=== PATIENT | female | born 1980 | race Caucasian/White ===

== ENCOUNTER → 2023-06-08 12:15 | Outpatient (CLI) | payer OTHER, MEDICAID, SELFPAY ==
--- NOTE | ~2023-06-08 | MM_ITS ---
EXAMINATION: MM screening nelson BI w fahad HISTORY: Screening mammogram TECHNIQUE: Craniocaudal and mediolateral oblique 3-D tomosynthesis images were obtained and synthetic 2-D images were generated. CAD analysis was submitted and interpreted. COMPARISON: No prior mammogram is available for comparison at this institution. BREAST PARENCHYMAL COMPOSITION: There are scattered areas of fibroglandular density. FINDINGS: There is no evidence of suspicious mass, calcification, or architectural distortion to sugg est malignancy in either breast. There has been no suspicious interval change. IMPRESSION: 1. No mammographic evidence of malignancy. 2. Recommend routine screening mammography in one year. BI-RADS Category 1: Negative Reviewed, dictated and finalized at location A.
== END ==
PROVIDERS: PCP Nurse Practitioner Obstetrics & Gynecology; Visit Provider Nurse Practitioner Obstetrics & Gynecology
DX: Z12.31 Encounter for screening mammogram for malignant neoplasm of breast (principal)
CPT/HCPCS: 77063; 77067

== ENCOUNTER 2023-06-23 10:58 | Outpatient (CLI) | payer OTHER, MEDICAID, SELFPAY ==
--- NOTE | 2023-06-23 11:05 | ECG_ITS ---
Measurements Intervals [place] Rate: 55 P: 28 NH: 148 QRS: 7 QRSD: 92 T: 0 QT: 421 QTc: 403 Interpretive Statements SINUS BRADYCARDIA LOW QRS VOLTAGE IN PRECORDIAL LEADS [QRS DEFLECTION < 1.0 mV IN CHEST LEADS] OTHERWISE WITHIN NORMAL LIMITS NO PREVIOUS ECG AVAILABLE FOR COMPARISON Electronically Signed On 06-24-2023 7:07:14 CDT by Bob Sainz M.D.
== END 2023-06-23 10:59 | disposition home or self-care (01) ==
LOC: ANHCARD 11:00
PROVIDERS: PCP Internal Medicine; Visit Provider Anesthesiology
DX: I10 Essential (primary) hypertension (principal); Z01.818 Encounter for other preprocedural examination
CPT/HCPCS: 93005

== ENCOUNTER 2023-06-27 01:07 | Day surgery (SDC) | payer OTHER, MEDICAID, SELFPAY ==
[2023-06-21 16:50] VITALS: BMI 42.3
--- NOTE | 2023-06-21 17:11 | PC.NURSE ---
Report to the Outpatient Waiting Room, entrance under the green pavilion located off [facility], at time 0600_ on date _06/27/23_. Planned Procedure Time: _0730_. Time changes happen often and if your time is changed the preop area will call you the afternoon before. - You and your visitor will be asked to self-screen and do not enter if you have any COVID symptoms. - A mask is optional within the hospital at this time. Patients may have clear liquids (water, carbonated beverages, clear teas, apple juice) until 3 hours prior to surgery with a maximum of 20 ounces. - No food from midnight until time of surgery - Infants may have breast milk until 4 hours before surgery, formula 6 hours prior to surgery. - Children will be allowed to drink immediately following surgery. If applicable, please bring a bottle or sippy cup to assist with drinking. Juice, water, soda, and popsicles are readily available. For infants on formula, please bring formula the day of surgery. Pacifiers are allowed. Take the following medications with a SIP of water the morning of surgery: __n/a DO NOT STOP ANY OF YOUR OTHER PRESCRIPTION MEDICATIONS PRIOR TO SURGERY ?EXCEPT THE FOLLOWING Medications to discontinue per physician Date to take last dose Please no make-up, nail latvian, hairspray, perfume, deodorant, or body powder the day of surgery. No jewelry (including any body piercings) or valuables the day of surgery, leave them at home. Please take a shower or bath the night before, or the morning of, surgery with an antibacterial soap. Wear comfortable, loose fitting clothing. Children are encouraged to wear pajamas. - Jewelry must be removed prior to entering the operating room. Rings and piercings that are not removed may be cut off. - The hospital will not accept responsibility for valuables. - Please leave all valuables, including medications, at home the day of surgery. If you are going home after surgery, a licensed shuttle bus driver must drive you home. - NO public transportation without another adult if you receive anesthesia. - We recommend that an adult stay with you for 24 hours following discharge. - We also recommend that you do not drive, make important decision, drink alcoholic beverages, or take any drugs that were not prescribed by your health care provider for at least 24 hours after your discharge time. For Pediatric surgeries, we recommend two adults accompany the child home. Follow any additional instructions given to you from your surgeon. If you or anyone in your household have experienced Covid symptoms in the past week, please notify your surgeon or the nurse liaison at the phone number below for possible testing. Telephone instructions given to Abbey Smartand asked if any additional questions and then verbalized understanding. Patient advised to call surgeon office or pre surgery nurse liaison [phone] if any additional questions.
[2023-06-27] VITALS (8 sets, daily range): BP systolic 108–141; BP diastolic 59–89; PULSE 60–87; RESP 11–18; TEMP 37.1–37.6; O2SAT 97–100
[2023-06-27] MEDS: LACTATED RINGERS 1,000 ML 30 ML IV CONT ×2 (06:30→08:36)
[2023-06-27] MEDS: SCOPOLAMINE 1.5 MG PATCH TRANSDERM (06:45)
--- NOTE | 2023-06-27 06:56 | WPDANESEPPF ---
Anes - Initial Pre Proc Eval Procedure: Operation Date: 06/27/23 07:30 Proposed Procedures p Laparoscopic Bilateral Salpingectomy, Hysteroscopy with Gabbi Endometrial Ablation - Daniel Sanchez MD Date/Time: 06/27/23 06:56 Surgeon: Daniel Sanchez MD Pre Op Diagnosis: Menorrhagia Patient Data Age: 43 Gender: F Height: 1.78 m Weight: 134 kg Allergies Allergy/AdvReac Type Severity Reaction Status Date / Time Penicillins Allergy Unknown Rash Verified 06/21/23 16:46 Home Medications Medication Instructions Recorded Confirmed Type metoprolol succinate 100 mg 100 mg PO HS 06/21/23 06/21/23 History tablet,extended release 24 hr rimegepant 75 mg disintegrating 75 mg PO DAILY PRN Migraine 06/21/23 06/21/23 History tablet (Nurtec ODT) Headache topiramate 100 mg tablet 200 mg PO HS 06/21/23 06/21/23 History Patient hx anesthesia problems: post op nausea/vomiting Family hx anesthesia problems: post op nausea/vomiting Results Review: All pre-operative results and documents have been reviewed as part of the pre-operative evaluation. [facility] Family History Family History Mother Family history of thyroid disease Hypertension Family history of diabetes mellitus in first degree relative Sibling Hypertension Father Cerebrovascular accident Grandparent Cerebrovascular accident Family history of malignant neoplasm Family history of heart disease in male family member before age 55 Social History Social History Smoking status: Never smoker Alcohol intake: never Substance use: never Living arrangements: with family Spiritual care concerns: No Anes - Eval Final PreProcedure Day of Procedure 06/27/23 06:56 Patient weight: morbidly obese Heart: regular rate and rhythm Lungs: clear to auscultation Airway: Mallampati scale class II Neurological: alert and oriented Last oral intake: >/= 8 hours ASA classification: III Emergent: no Anesthetic plan: proceed Anesthesia type and monitoring: general ETT and standard monitoring Results Review: All pre-operative results and documents have been reviewed as part of the pre-operative evaluation. Informed Consent: The patient's anesthetic plan and its attendant risks and benefits were discussed with the patient/family/POA. Questions were solicited and answers provided to the satisfaction of the patient/family/POA.
[2023-06-27] MEDS: ACETAMINOPHEN 500 MG TABLET 1000 MG PO (07:00)
[2023-06-27] MEDS: KETOROLAC 15 MG/ML VIAL (*BKC) IV PUSH (07:00)
--- NOTE | 2023-06-27 07:22 | WPDHPUPDATE1 ---
History and Physical Update Update Date/Time: 06/27/23 07:22 History and Physical has been reviewed, including an updated exam of the patient. There are NO changes in the patient's condition. Risks, benefits, and alternatives have been discussed and questions answered. Patient agrees to proceed with procedure.
--- NOTE | 2023-06-27 08:46 | P.OP_ITS ---
Procedure Note - Detailed Date of Procedure 06/27/23 Pre-op Diagnosis Menorrhagia Post-op Diagnosis Same Procedure Performed Laparoscopic bilateral salpingectomy with endometrial ablation and hysteroscopy. Surgeon Daniel Sanchez MD Anesthesia General Indications Menorrhagia, female sterilization Description of Procedure Patient was taken the operating room. She has prepped draped in the dorsal lithotomy position after induction of general anesthesia. A 5 mm abdominal incision was made in left upper quadrant of the abdomen with scalpel. A 5 mm trocars inserted the intra-abdominal cavity under direct visualization of the scope. Pneumoperitoneum was achieved. A 5 mm periumbilical incision was made using a scalpel on the abdominal scan. A 5 mm trocar was inserted the intra- abdominal cavity under visualization of the scope. A 5 mm incision made left l ower quadrant of the abdomen. A 5 mm trocar was inserted the intra-abdominal cavity and direct visualization of the scope. The bilateral fallopian tubes were removed. The paratubal tissue in the area of the uterus was grasped with the LigaSure cautery and transected after being cauterized. The paratubal tissue from the ovary to the uterine cornu was cauterized and transected with LigaSure cautery. This was all done in a bilateral fashion. The tube was transected at the area of the uterine cornua and the tubes was removed through the 5 mm trocar site. The pneumoperitoneum was reduced. The trocars were removed. The skin was closed with subcuticular 4 Monocryl and covered with Dermabond. Our attention was then turned to the endometrial ablation portion of the procedure. A speculum was placed in the vagina. The cervix was grasped with a tenaculum. The cervix was dilated to approximately 8 mm with Ulrich dilators. The hysteroscope was inserted. And the below findings were noted. All of the intrauterine surfaces were curettaged with a medium-size curette and the specimens were collected. Measurements of the cervix were taken using the uterine sound and the hysteroscope. The intrauterine cavity measurements were entered into the handpiece. The device was inserted into the intrauterine cavity and the array was expanded. The balloon cuff was inflated. When an adequate seal was formed the safety and energy cycles were initiated and completed. The array was collapsed, the balloon was deflated. The insert was withdrawn. The hysteroscope was reinserted and a well desiccated intrauterine cavity was observed. The patient was taken recovery room stable condition. Sponge lap and needle counts were correct x2. She tolerated the procedure well. Urine Output -100.0 Pathology Yes Complications No immediate complications Condition Stable Disposition PACU
[2023-06-27] MEDS: ONDANSETRON INJ 4 MG/2 ML VIAL IV PUSH (09:46)
[2023-06-27] MEDS: diphenhydrAMINE HCl INJ 50 MG/ML VIAL 25 MG IV PUSH (10:08)
== END 2023-06-27 11:00 | disposition home or self-care (01) ==
PROVIDERS: PCP Internal Medicine; Visit Provider Obstetrics & Gynecology
PROC: 0UDB8ZZ Extraction of Endometrium, Via Natural or Artificial Opening Endoscopic (ICD-10-PCS; CPT 58558; principal; 2023-06-27 07:30)
DX: N92.0 Excessive and frequent menstruation with regular cycle (principal); E66.01 Morbid (severe) obesity due to excess calories; Z68.41 Body mass index [BMI] 40.0-44.9, adult
CPT/HCPCS: 58661; 58563; 88302; 88305; 93005; A9270; J0330; J1100; J1200; J1885; J2250; J2405; J2704; J3010; J7030; J7120; Q9968

== ENCOUNTER 2024-03-24 14:00 | Emergency (ER) | payer OTHER, MEDICAID, SELFPAY ==
--- NOTE | ~2024-03-24 | XR_ITS ---
XR foot LT min 3V DATE: 03/24/2024 15:53 INDICATION: Heel pain TECHNIQUE: 4 views COMPARISON: None FINDINGS: Moderate plantar calcaneal enthesopathy. Distal Achilles tendon calcification. No fracture, dislocation, periosteal reaction or bone destruction is detected. No erosive change. IMPRESSION: Plantar calcaneal enthesopathy Distal Achilles tendon calcification Reviewed, dictated and finalized at location B.
[2024-03-24 14:36] VITALS: BP 155/106; PULSE 68; RESP 20; TEMP 37.3; O2SAT 100
--- NOTE | 2024-03-24 16:55 | ED.GENADULT ---
HPI - General Adult General Chief complaint: Extremity Injury, Lower Stated complaint: Left Heel Pain Time Seen by Provider: 03/24/24 16:40 Source: patient, RN notes reviewed and old records reviewed Mode of arrival: ambulatory Limitations: no limitations History of Present Illness HPI narrative: 44-year-old female to [facility] for complaint left heel pain for 1 month. Patient states that she works at [employer] and stands on concrete all day for extended periods of time. Patient states that she can no longer tolerate the pain and wanted to be seen. Patient endorses pain is significantly improved in the mornings after resting it returns immediately upon standing and applying pressure. Patient denies swelling, weakness, falls. Patient calm and in no acute distress in room Related Data Home Medications Medication Instructions Recorded Confirmed metoprolol succinate 100 mg 100 mg PO HS 06/21/23 03/24/24 tablet,extended release 24 hr rimegepant 75 mg disintegrating 75 mg PO DAILY PRN Migraine 06/21/23 03/24/24 tablet (Nurtec ODT) Headache topiramate 100 mg tablet 200 mg PO HS 06/21/23 03/24/24 Allergies Allergy/AdvReac Type Severity Reaction Status Date / Time Penicillins Allergy Unknown Rash Verified 06/27/23 07:27 Review of Systems Review of Systems: All systems reviewed & are unremarkable except as noted in HPI and below Constitutional: Constitutional: Reports no additional constitutional complaints Eyes: Eyes: Reports no additional eye complaints ENT: Reports system reviewed and no additional complaints, except as documented Cardiovascular: Cardiovascular: Reports no additional cardiovascular complaints, Denies chest pain and Denies dyspnea Respiratory: Respiratory: Reports no additional respiratory complaints, Denies cough and Denies dyspnea Musculoskeletal: Musculoskeletal: Reports as per HPI, Denies numbness, Denies tingling and Reports other ( left heel pain) Neurologic: Reports system reviewed and no additional complaints, except as documented Psychiatric: Psychiatric: Reports no additional psychiatric complaints [facility] Family History Family History Mother Family history of thyroid disease Hypertension Family history of diabetes mellitus in first degree relative Sibling Hypertension Father Cerebrovascular accident Grandparent Cerebrovascular accident Family history of malignant neoplasm Family history of heart disease in male family member before age 55 Social History Social History Smoking status: Never smoker Alcohol intake: never Substance use: never Living arrangements: with family Spiritual care concerns: No Comments At the time of my signature, I reviewed and agree with the nursing past medical, surgical, social, and family history. There is no relevant family history pertinent to the patient complaint. Exam Const: General: cooperative, healthy appearing, comfortable, no acute distress, alert and well nourished Nutritional Appearance: well nourished Orientation/consciousness: patient oriented x3 Limitations: no limitations HENMT: Head: normal to inspection Ears: external ears normal Face/Nose/Sinus: Normal external nose present, Normal nares present, normal facial exam, No erythema and No edema Face and sinus: normal facial exam, no erythema and no edema Mouth: Yes Normal oral and palatal mucosa present Eyes: General: appearance normal, both eyes and all related structures Neck: Neck: normal visual inspection, full ROM and no meningeal signs Lymphatic: no lymphadenopathy noted and no lymphedema noted Chest: Chest palpation & inspection: normal inspection of the chest Resp: Effort & Inspection: normal respiratory effort and able to speak in complete sentences Auscultation: clear to auscultation bilaterally Cardio: Jugular venous diste
== END 2024-03-24 17:10 | disposition home or self-care (01) ==
PROVIDERS: Emergency Provider Nurse Practitioner Family
DX: M79.672 Pain in left foot (principal); M79.662 Pain in left lower leg
CPT/HCPCS: 73630; 99213; G0463

== ENCOUNTER 2024-04-29 08:02 | Emergency (ER) | payer OTHER, MEDICAID, SELFPAY ==
--- NOTE | ~2024-04-29 | XR_ITS ---
EXAMINATION: XR foot RT min 3V DATE: 04/29/2024 08:27 INDICATION: Pain and bruising at the right fourth toe TECHNIQUE: Dorsoplantar, two oblique and lateral views of the right foot were obtained. COMPARISON: None. FINDINGS: Alignment is normal. No fracture. 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 Small to moderat e-sized Achilles and plantar calcaneal spurs. Soft tissues are unremarkable. IMPRESSION: 1. No acute osseous abnormality. Reviewed, dictated and finalized at location B.
[2024-04-29 08:07] VITALS: BP 166/99; PULSE 53; RESP 20; TEMP 37.2; O2SAT 98
--- NOTE | 2024-04-29 08:08 | ED.LOWEXIN ---
HPI - Extremity Injury (Lower) General Chief Complaint: Extremity Injury, Lower Stated Complaint: right toe/foot injury Time Seen by Provider: 04/29/24 08:15 Source: patient, RN notes reviewed and old records reviewed Mode of arrival: ambulatory Limitations: no limitations History of Present Illness HPI Narrative: 44-year-old female who presents to [facility] with complaints of injury to her right 4th toe when she was getting out of the bathtub last night. She states that she got it caught on the edge of the bathtub but did not fall, Patient has some swelling and bruising of her right 4th toe extending into the distal foot area above toe. Patient has iced her foot but has not taken any OTC medication for her discomfort MD complaint: foot injury (4th toe right foot) Onset (ago): day(s) (last evening) Injury: Right: toes (right 4th toe) Place: home Exacerbating factors: weight bearing Treatments prior to arrival: cold therapy and other Related Data Home Medications Medication Instructions Recorded Confirmed metoprolol succinate 100 mg 100 mg PO HS 06/21/23 04/29/24 tablet,extended release 24 hr rimegepant 75 mg disintegrating 75 mg PO DAILY PRN Migraine 06/21/23 04/29/24 tablet (Nurtec ODT) Headache topiramate 100 mg tablet 200 mg PO HS 06/21/23 04/29/24 Allergies Allergy/AdvReac Type Severity Reaction Status Date / Time Penicillins Allergy Unknown Rash Verified 04/29/24 08:19 Review of Systems Review of Systems: CONSTITUTIONAL: Denies fever, chills, or sweats. EYES: Denies visual changes, redness, or discharge. ENT: Denies rhinorrhea, congestion, sore throat, or otalgia. CARDIOVASCULAR: Denies chest pain, palpitations, or edema. RESPIRATORY: Denies cough or dyspnea. GASTROINTESTINAL: Denies abdominal pain, nausea, vomiting, or diarrhea. GENITOURINARY: Denies dysuria or hematuria. SKIN: Denies rash or itching. MUSCULOSKELETAL: Denies back pain, positive for right foot 4th toe pain from injury, or myalgia. NEUROLOGIC: Denies headache, numbness, or weakness. PSYCHIATRIC: Denies anxiety or depression. All systems reviewed & are unremarkable except as noted in HPI and below PMFSH Past Medical History Medical History (Updated 04/29/24 @ 08:48 by Shira Hollins NP) Hypertension Kidney stone Migraine Surgical History Surgical History (Updated 04/29/24 @ 08:48 by Shira Hollins NP) History of endometrial ablation History of lithotripsy Hx of bilateral salpingectomy Family History Family History Mother Family history of thyroid disease Hypertension Family history of diabetes mellitus in first degree relative Sibling Hypertension Father Cerebrovascular accident Grandparent Cerebrovascular accident Family history of malignant neoplasm Family history of heart disease in male family member before age 55 Social History Social History Smoking status: Never smoker Alcohol intake: never Substance use: never Living arrangements: with family Spiritual care concerns: No Comments At time of signature, agree with nursing past medical, surgical, social and family history. There is no relevant family history pertinent to the presenting complaint Exam Narrative: GENERAL: Well-appearing, well-nourished, and in no acute distress. HEAD: Normocephalic, atraumatic. EYES: PERRLA and EOMI. ENT: Nares clear, no rhinorrhea or epistaxis. Mucous membranes moist. NECK: Supple.no lymphadenopathy CHEST: Clear to auscultation. No respiratory distress. SAO2 98% on room air HEART: Regular rate and rhythm. No murmur heard. Normal peripheral pulses. ABDOMEN: Soft, nontender, nondistended, normal active bowel sounds. EXTREMITIES: Normal range of motion. No edema.Exception noted to right 4th toe with swelling and bruising noted, patient has strong pedal pulse right foot, foot warm and pink. SKI
== END 2024-04-29 08:53 | disposition home or self-care (01) ==
PROVIDERS: Emergency Provider Registered Nurse; PCP Internal Medicine
DX: S90.121A Contusion of right lesser toe(s) without damage to nail, initial encounter (principal); W22.09XA Striking against other stationary object, initial encounter; I10 Essential (primary) hypertension
CPT/HCPCS: 73630; 99213; G0463

== ENCOUNTER 2025-03-31 09:16 | Emergency (ER) | payer OTHER, SELFPAY ==
--- NOTE | ~2025-03-31 | XR_ITS ---
Left foot Technique: AP, oblique, and lateral views were obtained. Clinical History: Heel pain Findings: No acute fracture or dislocation is seen. Osseous alignment is anatomic. Joint spaces are p reserved without erosive or degenerative change. Plantar calcaneal spur present. Soft tissues are unr emarkable. Impression: Plantar calcaneal spur. Reviewed, dictated and finalized at location . Impression: Plantar calcaneal spur.
--- NOTE | 2025-03-31 09:23 | ED.LOWEXIN ---
HPI - Extremity Injury (Lower) General Chief Complaint: Extremity Injury, Lower Stated Complaint: lt foot pain Time Seen by Provider: 03/31/25 09:22 Source: patient Mode of arrival: ambulatory Limitations: no limitations History of Present Illness HPI Narrative: Abbey is a 45 year old female patient presenting to the clinic today with c/o left foot pain increasing worsening for the past several days. She reports her left heel has been more painful and throbbing at night time. No injury. Has seen podiatry and she has bone spurs. Has changed her shoes and performed stretches however at this time it is not relieving her pain. Has taken Ibuprofen for pain. Has an appointment with podiatry on 04/20/25. Is concerned for a stress fracture. Related Data Home Medications ?Medication ?Instructions ?Recorded ?Confirmed ?Last Taken ?Type metoprolol succinate 100 mg 100 mg PO HS 06/21/23 04/29/24 06/26/23 21:00 History tablet,extended release 24 hr rimegepant 75 mg disintegrating 75 mg PO DAILY PRN Migraine 06/21/23 04/29/24 Unknown History tablet (Nurtec ODT) Headache topiramate 100 mg tablet 200 mg PO HS 06/21/23 04/29/24 Unknown History metoprolol succinate 50 mg mg PO 03/31/25 Unknown History tablet,extended release 24 hr potassium citrate 15 mEq (1,620 meq PO 03/31/25 Unknown History mg) tablet,extended release Allergies Allergy/AdvReac Type Severity Reaction Status Date / Time Penicillins Allergy Unknown Rash Verified 04/29/24 08:19 Review of Systems Review of Systems: Pertinent positives per HPI. Patient denies any fever, chills, rash, headache, visual changes, dizziness, cough, runny nose, sore throat, shortness of breath, chest pain, palpitations, nausea, vomiting, diarrhea, constipation, abdominal pain, or any urinary issues. [facility] Past Medical History Medical History Kidney stone Hypertension Migraine Surgical History Surgical History History of lithotripsy History of endometrial ablation Hx of bilateral salpingectomy Family History Family History Mother Family history of thyroid disease Hypertension Family history of diabetes mellitus in first degree relative Sibling Hypertension Father Cerebrovascular accident Grandparent Cerebrovascular accident Family history of malignant neoplasm Family history of heart disease in male family member before age 55 Social History Social History Smoking status: Never smoker Alcohol intake: never Substance use: never Living arrangements: with family Spiritual care concerns: No Comments At the time of my signature, I reviewed and agree with the nursing past medical, surgical, social, and family history. There is no relevant family history pertinent to the patient complaint. Exam Narrative: General: Well-developed, well nourished, in no apparent distress Head: Normocephalic, atraumatic. Cardio: Regular rate and rhythm, s1 and s2 normal, no murmur appreciated. Resp: Clear to auscultation bilaterally, no rhonchi, rales, wheezing or rubs. Musculoskeletal: No deformity, no tenderness over the Achilles tendon or over the arch of the foot, tender to palpation to the mid heel, pain with dorsal flexion to the mid heel, grossly normal range of motion, muscle strength strong and equal, peripheral pulse strong, no edema, no cyanosis, normal gait and station Course Course Emergency Course: Portions of this record may have been created with voice recognition software. Level of Care: Express Care Visit Vital Signs Vital signs: Vital Signs Temperature 36.7 C 03/31/25 09:28 Pulse Rate 73 03/31/25 09:28 Respiratory Rate 20 03/31/25 09:28 Blood Pressure 147/114 H 03/31/25 09:28 Pulse Oximetry 96 03/31/25 09:28 Oxygen Delivery Room Air 03/31/25 09:28 Temperature 36.7 C 03/31/25 09:28 Pulse Rate 73 03/31/25 09:28 Respiratory Rate 20 03/31/25 09:28 Blood Pressure 147/114 H 03/31/25 09:28 Pulse Oximetry 96 03/31/25 09:28 Oxygen Delivery Room Air 03/31/25 09:28 Vital signs reviewed MDM - Extremity Injury (Lower) MDM Narrative Medical decision making narrative: At the time of visit patient is resting comfortably on the exam table. Patient appears to be nontoxic. Diagnostics: X-ray of the left foot was performed and shows a left calcaneal spur. No sign of fracture. Plan: I suspect patient has left heel pain-differential diagnoses include bone spurs, arthritis, or plantar fasciitis. Supportive measures were discussed with the patient and they voiced understanding discharge instructions and agrees to treatment plan. Return precautions reviewed Differential Diagnosis Differential diagnosis: Likely other (Stress fracture, bone spurs, plantar fasciitis, arthritis) Imaging Data Radiologist's impression: ITS Impressions Foot X-Ray 03/31/25 09:55 Impression: Plantar calcaneal spur. Discharge Plan Discharge Clinical Impression: Calcaneal spur of left foot Heel pain Qualifiers: Laterality: left Qualified Code(s): M79.672 - Pain in left foot Patient Disposition: Home Condition: Stable Instructions: Antibiotic Form, Heel Spur (ED) Additional Instructions: X-ray shows a calcaneal heel spur. No sign of fracture Rest, ice, elevate Tylenol/motrin for pain as discussed. Gradually bear weight Take Medrol Dosepak as prescribed Follow up with your PCP if symptoms persist more than 1 week. Patient Language: Greenlandic Prescriptions: New methylprednisolone [Medrol (Lam)] 4 mg tablets,dose pack See Rx Instructions PO .COMPLEX Qty: 21 0RF Rx Instructions: orally per package directions No Action metoprolol succinate 50 mg tablet extended release 24 hr PO potassium citrate 15 mEq tablet extended release PO metoprolol succinate 100 mg tablet extended release 24 hr 100 mg PO HS Patient Comments: at bedtime topiramate 100 mg tablet 200 mg PO HS Patient Comments: at bedtime Nurtec ODT 75 mg tablet,disintegrating 75 mg PO DAILY PRN (Reason: Migraine Headache) Follow-up/Referrals: Milad,Jose Roa MD [Primary Care Provider] - Time of Disposition: 10:01 Quality NIHSS Nursing Documentation ED NIHSS nursing documentation: reviewed/agree
--- OUTSIDE RECORDS SUMMARY | 2025-03-31 09:26 | XMS_ITS | Clinical Summary ---
Author Organization [facility] Address [address] [facility] [place] [address] Phone Care Team Providers Care Outboard Motor Inspector Name Role Phone Jose Stinson MD Primary Care Provider [phone] Allergies Active Allergy Reactions Criticality Noted Date Comments Amlodipine Other (See Comments) 07/29/2024 swelling Penicillins Rash High 04/09/2022 As a child Moderate, immediate reaction: PCN allergy form completed. Moderate risk. Medications topiramate (TOPAMAX) 100 mg tablet Take 100 mg by mouth 2 times daily. Active cyanocobalamin (VITAMIN B-12) 100 mcg tablet Take 100 mcg by mouth daily at bedtime. Active Nurtec ODT 75 mg Tablet, Rapid Dissolve Place 75 mg under tongue. 2 Active diclofenac sodium (VOLTAREN) 75 mg Tablet, Delayed Release (E.C.) PRN- stopped due to issues pertaining to the heart 4 Active metoprolol succinate (TOPROL XL) 50 mg Extended Release 24 hour tablet Take 1 Tablet (50 mg) by mouth daily. 90 Tablet 1 5 Active Active Problems Problem Noted Date Diagnosed Date PVC's (premature ventricular contractions) 07/28 Status post ablation of ventricular arrhythmia 0 07/28/2024 Sinus bradycardia on ECG 05/16/2024 Fatigue 05/16/2024 Palpitations 05/16/2024 Encounters Date Type Department Care Team Description 03/26/2025 External Device Data [facility] ABSTRACTION Provider, Abstract 03/24/2025 External Device Data [facility] Provider, Abstract 02/18/2025 Refill [facility] [address] [place] [address] Jd Glover MD 01/21/2025 External Device Data [facility] ABSTRACTION Provider, Abstract 01/10/2025 External Device Data [facility]STRACTION Provider, Abstract 01/09/2025 External Device Data [facility]STRACTION Provider, Abstract 01/06/2025 External Device Data [facility] ABSTRACTION Provider, Abstract from Last 3 Months Family History Medical History Relation Name Comments Hypertension Father Hypertension Mother Relation Name Status Comments Father Mother Social History Tobacco Use Types Packs/Day Years Used Date Smoking Tobacco: Never Passive Smoke Exposure: Never Smokeless Tobacco: Never Tobacco Cessation:Counseling Given: Not Answered Alcohol Use Standard Drinks/Week Comments Never 0 (1 standard drink = 0.6 oz pur e alcohol) Comments Unknown Sex and Gender Information Value Date Recorded Sex Assigned at Not on file Legal Sex Female 2:29 PM CDT Gender Identity Not on file Sexual Orientation Not on file Last Filed Vital Signs Vital Sign Reading Time Taken Comments Blood Pressure 138/88 07/29/2024 11:08 AM CDT Pulse 73 07/29/2024 11:08 AM CDT Temperature 36.1 C (97 F) 06/18/2024 4:27 PM CDT Respiratory Rate 25 06/18/2024 7:00 PM CDT Oxygen Saturation 98% 07/29/2024 11:08 AM CDT Inhaled Oxygen Concentration - - Weight 112.9 kg (249 lb) 07/29/2024 11:08 AM CDT Height 177.8 cm (5' 10) 07/29/2024 11:08 AM CDT Body Mass Index 35.73 07/29/2024 11:08 AM CDT Plan of Treatment Upcoming Encounters Date Type Department Care Team (Late st Contact Info) Description 07/30/2025 9:30 AM CDT Office Visit [facility] AT [address] [place] [address] Jd Glover MD [address] [place] [address] [address] [place] [id number] Health Maintenance Due Date Last Done Comments Pre-Diabetes and Diabetes Screening 1981 HEPATITIS B VACCINES (1 of 3 - 19+ 3-dose series) 01/30/2000 HPV/Cotest (21-29) 2002 CERVICAL CANCER SCREENING 2011 HPV/Cotest (30-65) 2011 PAP SMEAR 2011 BREAST CANCER SCREENING 2021 INFLUENZA VACCINE (#1) 2024 DTAP/TDAP/TD VACCINES (2 - T d or Tdap) 06/19/2026 06/19/2016 HPV VACCINES Aged Out No longer eligi ble based on patient's age to complete this topic Medical Devices Implanted Type Area Veneer Lathe Operator Device Identifier Shelf Expiration Date Model / Serial / Lot Dev Vns Vasc Clsr Vascade Mvp St [id number] - [id number] Implanted:Qty : 1 on 06/18/2024 by Jd Glover MD at [facility] Closure Device Right: Groin [employer] [id number] 02/24/2026 800-612C- 10U / / [id number] Dev Vns Vasc Clsr Vascade Mvp St [id number] - [id number] Implanted:Qty : 1 on 06/18/2024 by Jd Glover MD at [facility] Closure Device Left: Groin [employer] [id number] 02/24/2026 800-612C- 10U / / [id number] Dev Vns Vasc Clsr Vascade Mvp St [id number] - [id number] Implanted:Qty : 1 on 06/18/2024 by Jd Glover MD at [facility] Closure Device Left: Groin [employer] [id number] 02/24/2026 800-612C- 10U / / [id number] Dev Vasc Closure Vascade 5fr [id number] - [id number] Implanted:Qty : 1 on 06/18/2024 by Jd Glover MD at [facility] Closure Device N/A: [employer] [id number] 03/13/2026 [id number] / / [id number] Insurance [facility] OPTIONS PPO [id number] MEDICAID [place] Advance Directives For more information, please contact: [phone] * Full Code (Latest Code Status on File) Date Activated Date Inactivated Comments 06/18/2024 5:19 PM 06/18/2024 9:54 PM * Full Code Date Activated Date Inactivated Comments 06/18/2024 4:29 PM 06/18/2024 5:19 PM * Full Code Date Activated Date Inactivated Comments 06/18/2024 10:36 AM 06/18/2024 4:29 PM Care Teams Outboard Motor Inspector Relationship Specialty [place] [id number] [facility] [address] [place] [address] PCP - General Internal Medicine 05/20/24
--- OUTSIDE RECORDS SUMMARY | 2025-03-31 09:26 | XMS_ITS | Clinical Summary ---
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 Moderate risk. Medications metoprolol XL (TOPROL-XL) 100 mg 24 hr tablet Take 100 mg by mouth daily Active topiramate (TOPAMAX) 100 mg tablet Take 1 tablet (100 mg total) by mouth 2 (two) times a day 09/07/20 21 Active Additional Information Patient not taking.Reported on 09/20/2021 ondansetron ODT (ZOFRAN-ODT) 4 mg disintegrating tablet Dissolve 1 tablet for mild to moderate nausea or vomiting or 2 tablets for severe nausea or vomiting oral twice a day as needed. 15 tablet 04/02/20 22 Active HYDROcodone-acetam inophen (NORCO) 5-325 mg per tabletIndications: Pain Take 1 tablet by mouth every 6 (six) hours as needed for pain for up to 6 doses 6 tablet 09/24/20 24 Active tamsulosin (FLOMAX) 0.4 mg extended release capsule Take 1 capsule (0.4 mg total) by mouth daily for 7 doses 7 capsule 09/24/20 24 Active ketorolac (TORADOL) 10 mg tablet Take 1 tablet (10 mg total) by mouth every 6 (six) hours as needed for pain for up to 20 doses 20 tablet 09/24/20 24 Active omeprazole (PriLOSEC) 20 mg capsule Take 2 capsules (40 mg total) by mouth daily 30 capsule 11/03/20 24 025 Active dicyclomine (BENTYL) 20 mg tablet Take 1 tablet (20 mg total) by mouth 2 (two) times a day 20 tablet 01/23/20 25 026 Active Active Problems Problem Noted Date Diagnosed Date Left ureteral stone 09/05/2021 Resolved Problems Problem Noted Date Diagnosed Date Resolved Date Kidney stone 09/05/2021 09/05/2021 Encounters Date Type Department Care Team Description 02/23/2025 3:18 PM CDT - 02/23/2025 11:59 PM CDT Hospital Encounter [facility] Imaging Center [address] [place] [address] Chronic metabolic acidosis Discharge Disposition: Discharge to home or self care 02/03/2025 1:36 PM CDT - 02/03/2025 11:59 PM CDT Hospital Encounter [facility] Respiratory [address] [place] [address] Discharge Disposition: Discharge to home or self care 02/03/2025 12:55 PM CDT Lab [address] [address] 02/03/2025 12:50 PM CDT - 02/03/2025 11:59 PM CDT Hospital Encounter [address] [address] Discharge Disposition: Discharge to home or self care 01/22/2025 9:14 PM CDT - 01/23/2025 12:08 AM CDT Emergency [facility] Emergency Department [address] [place] [address] Rogelio Herman MD Abdominal pain (Primary Dx) Discharge Disposition: Discharge to home or self care from Last 3 Months Surgical History Surgery Date Site/Laterality Comments FINGER SURGERY CYSTOSCOPY 09/06/2021 Medical History Medical History Date Comments HTN (hypertension) Migraines Kidney stones Family History Medical History Relation Name Comments Stroke Father Diabetes Mother Relation Name Status Comments Father Alive Mother Alive Social History Tobacco Use Types Packs/Day Years Used Date Smoking Tobacco: Former Cigarettes Q uit: 09/06/2021 Smokeless Tobacco: Current Tobacco Cessation:Ready to Q uit: Not Asked; Counseling Given: Not Answered Alcohol Use Standard Drinks/Week Comments Yes 0 (1 standard drink = 0.6 oz pur e alcohol) special occasions Social Connection and Isolat ion Panel [NHANES] Answer Date Recorded In a typical week, how many times do you talk on the phone with family, friends, or neighbors? More than three times a week 09/07/2021 How often do you get togethe r with friends or relatives? More than three times a week 09/07/2021 How often do you attend chur ch or hinduism services? More than 4 times per year 09/07/2021 Do you belong to any clubs o r organizations such as gnosticist groups, unions, fraternal or athletic groups, or school groups? No 09/07/2021 How often do you attend meet ings of the clubs or organizations you belong to? Never 09/07/2021 Are you , , di vorced, , never , or living with a partner? Never 09/07/2021 Overall Financial Resource Strain (CARDIA) Answe r Date Recorded How hard is it for you to pa y for the very basics like food, housing, medical care, and heating? Somewhat hard 09/07/2021 Hunger Vital Sign Answer Date Recorded Within the past 12 months, y ou worried that your food would run out before you got the money to buy more. Never true 09/07/20 21 Within the past 12 months, t he food you bought just didn't last and you didn't have money to get more. Never true 09/07/2021 PRAPARE - Transportation Answer Date Re corded In the past 12 months, has l ack of transportation kept you from medical appointments or from getting medications? No 01/2021 In the past 12 months, has l ack of transportation kept you from meetings, work, or from getting things needed for daily living? No 09/07/2021 Housing Stability Vital Sign Answer Larry e Recorded In the last 12 months, was t here a time when you were not able to pay the mortgage or rent on time? No 09/07/2021 Number of Places Lived in the Last Year Not on f ile 09/07/2021 In the last 12 months, was t here a time when you did not have a steady place to sleep or slept in a care home (including now)? No 09/07/2021 Personal Safety Answer Date Recorded Have you ever been in or are you currently in a harmful physical or emotional relationship or is someone making you feel afraid or unsafe? 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[employer] Gender Identity Not on file Sexual Orientation Not on file Obstetrics History Last Filed Vital Signs Vital Sign Reading Time Taken Comments Blood Pressure 160/88 01/22/2025 11:30 PM CDT Pulse 80 01/22/2025 11:30 PM CDT Temperature 37.6 C (99.6 F) 01/22/2025 9:01 PM CDT Respiratory Rate 18 01/22/2025 9:01 PM CDT Oxygen Saturation 98% 01/22/2025 11:30 PM CDT Inhaled Oxygen Concentration - - Weight 131.5 kg (290 lb) 01/22/2025 9:01 PM CDT Height 180.3 cm (5' 11) 01/22/2025 9:01 PM CDT Body Mass Index 40.45 01/22/2025 9:01 PM CDT Plan of Treatment Health Maintenance Due Date Last Done Comments Breast Cancer Screening-Mammogram 1981 Cervical Cancer Screening 1981 Depression Screening 1981 Hepatitis C Screening 1981 Varicella Vaccines (1 of 2 - 13+ 2-dose series) 1994 Hepatitis B Screening 1999 Regular Well Visit/Exam 18-64 1999 Influenza Vaccine (Season Ended) 2025 DTaP/Tdap/Td Vaccine (2 - Td or Tdap) 06/19/2026 06/19/2016 HPV Vaccines Aged Out No longer eligi ble based on patient's age to complete this topic Pneumococcal vaccine <65 Aged Out No longer eligible based on patient's age to complete this topic Medical Devices Explanted Type Area Office Copy Selector Device Identifier Shelf Expiration Date Model / Serial / Lot [employer] [facility] [facility] [employer] [id number] 6fr 28cm Radiopaque Graduate [employer] Positioner - [id number] Implanted:Qty: 1 on 09/06/2021 by Grant Ramirez MD at [facility] Explanted:Qty: 1 on 09/21/2021 by Grant Ramirez MD at [facility] Left: Urethra [employer] 08/01/2024 [id number] / / [id number] Procedures Procedure Name Priority Date/Time Associated Diagnosis Comments US KIDNEY COMPLETE Schedule Routine, Read Routine (OP Routine) 02/23/2025 4:25 PM CDT Chronic metabolic acidosis BLOOD GAS, ARTERIAL STAT 02/03/2025 2 :10 PM CDT URINALYSIS, MICROSCOPIC ONLY Routine 02/03/2025 1:17 PM CDT EGFR Routine 02/03/2025 1:17 PM CDT EGFR Routine 02/03/2025 1:17 PM CDT PHOSPHORUS Routine 02/03/2025 1:17 PM CDT BILIRUBIN, DIRECT Routine 02/03/2025 1:1 7 PM CDT COMPREHENSIVE METABOLIC PANEL Routine 02/03/2025 1:17 PM CDT DIFFERENTIAL AUTO Routine 02/03/2025 1:1 7 PM CDT RENIN ACTIVITY Routine 02/03/2025 1:17 PM CDT ALDOSTERONE Routine 02/03/2025 1:17 PM CDT CREATININE Routine 02/03/2025 1:17 PM CDT CHLORIDE, URINE, RANDOM Routine 02/03/2025 1:17 PM CDT POTASSIUM, URINE, RANDOM Routine 02/03/2025 1:17 PM CDT SODIUM, URINE, RANDOM Routine 02/03/2025 1:17 PM CDT URIC ACID Routine 02/03/2025 1:17 PM CDT T4, FREE Routine 02/03/2025 1:17 PM CDT TSH Routine 02/03/2025 1:17 PM CDT VITAMIN D 25 HYDROXY Routine 02/03/2025 1:17 PM CDT PTH Routine 02/03/2025 1:17 PM CDT PROTEIN / CREATININE RATIO, URINE, RANDOM Routine 02/03/2025 1:17 PM CDT CBC WITH AUTO DIFFERENTIAL Routine 02/03/2025 1:17 PM CDT HEMOGLOBIN A1C Routine 02/03/2025 1:17 PM CDT MAGNESIUM Routine 02/03/2025 1:17 PM CDT URINALYSIS AND REFLEX TO MICROSCOPIC AND CULTURE Routine 02/03/2025 1:17 PM CDT VOLUME AND PERIOD, URINE, 24 HOUR Routine 02/03/2025 11:30 AM CDT CALCIUM, URINE, 24 HOUR RESULT Routine 02/03/2025 11:30 AM CDT URINE MISC TO MOBILE Routine 02/03/2025 11 :30 AM CDT VOLUME AND PERIOD, URINE, 24 HOUR Routine 02/03/2025 11:30 AM CDT CITRATE, URINE, 24 HOUR RESULT Routine 02/03/2025 11:30 AM CDT CREATININE CLEARANCE, URINE, 24 HOUR RESULT Routine 02/03/2025 11:30 AM CDT VOLUME AND PERIOD, URINE, 24 HOUR Routine 02/03/2025 11:30 AM CDT SODIUM, URINE, 24 HOUR RESULT Routine 02/03/2025 11:30 AM CDT TROPONIN T HIGH-SENSITIVITY 2-HOUR Timed 01/22/2025 11:[address] ABDOMEN PELVIS W CONTRAST ED 01/22/2025 11:25 PM CDT DIFFERENTIAL AUTO STAT 01/22/2025 10: 22 PM CDT CBC WITH AUTO DIFFERENTIAL STAT 01/22/2025 10:22 PM CDT POCT HCG, URINE Routine 01/22/2025 9:47 PM CDT URINALYSIS AND REFLEX TO MICROSCOPIC AND CULTURE STAT 01/22/2025 9:47 PM CDT EGFR STAT 01/22/2025 9:36 PM CDT TROPONIN T HIGH-SENSITIVITY SERIES (BASELINE, 2HR, 4HR, 6HR) STAT 01/22/2025 9:36 PM CDT LIPASE STAT 01/22/2025 9:36 PM CDT COMPREHENSIVE METABOLIC PANEL STAT 01/22/2025 9:36 PM CDT ECG 12-LEAD STAT 01/22/2025 9:07 PM CDT from Last 3 Months Results * US Kidney Complete (02/23/2025 4:25 PM CDT) Anatomical Region Laterality Modality Kidney N/A Ultrasound 02/26/2025 10:1 0 AM CDT Narrative 02/26/2025 10:12 AM CDT EXAM DESCRIPTION: US KIDNEY COMPLETE REASON FOR STUDY: chronic metabolic acidosis TECHNIQUE: Ultrasound of the kidneys and urinary bladder was performed with grayscale imaging. COMPARISON: CT dated 01/22/2025 FINDINGS: Right Kidney: Normal in size and measures 11.8 cm. Borderline increased echogenicity. No hydronephrosis. 7 and 8 mm shadowing echogenic foci. Left Kidney: Normal in size and measures 11.5 cm. Normal echogenicity. No hydronephrosis. 6 mm shadowing echogenic focus with twinkle artifact. Bladder: Partially distended. Bilateral ureteral jets are documented. IMPRESSION: 1. No hydronephrosis. 2. Likely bilateral nonobstructing renal stones. THIS IS AN ELECTRONICALLY VERIFIED FINAL REPORT 02/26/2025 10:12 AM - Electronically signed by Poli Trevino M.D. AG: HERBIE Report ID: [id number] Reading Location: [id number] Procedure Note Poli Trevino MD - 02/26/2025 EXAM DESCRIPTION: US KIDNEY COMPLETE REASON FOR STUDY: chronic metabolic acidosis TECHNIQUE: Ultrasound of the kidneys and urinary bladder was performedwith grayscale imaging. COMPARISON: CT dated 01/22/2025 FINDINGS: Right Kidney: Normal in size and measures 11.8 cm. Borderline increased echogenicity. No hydronephrosis. 7 and 8 mm shadowing echogenic foci. Left Kidney: Normal in size and measures 11.5 cm. Normal echogenicity.No hydronephrosis. 6 mm shadowing echogenic focus with twinkle artifact. Bladder: Partially distended. Bilateral ureteral jets are documented. IMPRESSION: 1. No hydronephrosis. 2. Likely bilateral nonobstructing renal stones. THIS IS AN ELECTRONICALLY VERIFIED FINAL REPORT 02/26/2025 10:12 AM - Electronically signed by Poli Trevino M.D. AG: HERBIE Report ID: [id number] Reading Location: [id number] us Jose Antonio Grande MD IM US PROCEDURES Final Resul t * (ABNORMAL) Blood gas, arterial (02/03/2025 2:10 PM CDT) pH, Art 7.38 7.35 - 7.45 PCO2, Arterial 29(L) 35 - 45 mmHg [facility] ([place]) PO2, Arterial 86 83 - 108 mmHg [facility] HCO3 Art (Calculated) 17(L) 20 - 30 mmol/L [facility] ([place]) BE, art -7 mmol/L [facility] ([place]) Comment: Interpretive Data No Reference Range Established Current Interpretive Data was last revised on 2017 O2 Sat Art (Measured) 96(H) 90 - 95 % [facility] ([place]) Blood 02/03/2025 2:10 PM CDT 02/03/2025 2:16 PM CDT Jose Antonio Grande MD LAB BLOOD ORDERABLES Final Re sult [facility] ([place]) 1 [facility] Department [place] [address] * eGFR (02/03/2025 1:17 PM CDT) eGFR 84 >=60 mL/min/1. 73 m2 Comment: Interpretive Data Reference Interval Normal >/= 90 mL/min/1.73m2 Mildly decreased* 60 - 89 mL/min/1.73m2 Mildly to moderately decreased 45 - 59 mL/min/1.73m2 Moderately to severely decreased 30 - 44 mL/min/1.73m2 Severely decreased 15 - 29 mL/min/1.73m2 Kidney Failure < 15 mL/min/1.73m2 *Relative to young adult level Estimated glomerular filtration rate is determined by the 2020 CKD-EPI equation recommended by the National Kidney Foundation (A Unifying Approach to GFR Estimation: Recommendations of the NKF-ASK Task Force on Reassessing the Inclusion of Race in Diagnosing Kidney Disease, JASN 202). The CKD-EPI equation should not be used for patients with unstable renal function and has not been validated in children and those over 70. Current interpretive data was last reviewed 2021. Blood 02/03/2025 1:17 PM CDT 02/03/2025 1:47 PM CDT Jose Antonio Grande MD LAB BLOOD ORDERABLES Final Re sult [facility] ([place]) [address] [facility] [place] [address] * eGFR (02/03/2025 1:17 PM CDT) eGFR 87 >=60 mL/min/1. 73 m2 Comment: Interpretive Data Reference Interval Normal >/= 90 mL/min/1.73m2 Mildly decreased* 60 - 89 mL/min/1.73m2 Mildly to moderately decreased 45 - 59 mL/min/1.73m2 Moderately to severely decreased 30 - 44 mL/min/1.73m2 Severely decreased 15 - 29 mL/min/1.73m2 Kidney Failure < 15 mL/min/1.73m2 *Relative to young adult level Estimated glomerular filtration rate is determined by the 2020 CKD-EPI equation recommended by the National Kidney Foundation (A Unifying Approach to GFR Estimation: Recommendations of the NKF-ASK Task Force on Reassessing the Inclusion of Race in Diagnosing Kidney Disease, JASN 2020). The CKD-EPI equation should not be used for patients with unstable renal function and has not been validated in children and those over 70. Current interpretive data was last reviewed 2021. Urine/Blood 02/03/2025 1:17 PM CDT 02/03/2025 1:47 PM CDT Jose Antonio Grande MD LAB BLOOD ORDERABLES Final Re sult [facility] ([place]) 1 [facility] [place] [address] * Differential, auto (02/03/2025 1:17 PM CDT) Neutrophil abs 5.42 1.50 - 6.50 K/cumm Imm gran abs 0.02 0.00 - 0.10 K/cumm [facility] ([place]) Lymphocyte abs 1.92 0.80 - 3.30 K/cumm [facility] ([place]) Monocyte abs 0.63 0.20 - 0.80 K/cumm [facility] ([place]) Eosinophil abs 0.20 0.00 - 0.50 K/cumm [facility] ([place]) Basophil abs 0.06 0.00 - 0.10 K/cumm [facility] ([place]) Neutrophil pct 65.8 % [facility] ([place]) Comment: Interpretive Data Percent cell count reference ranges are not reported, since discordance with absolute values may lead to misinterpretation of CBC data. Current Interpretive Data was last revised on 2018. Imm gran pct 0.2 % [facility] ([place]) Comment: Interpretive Data Percent cell count reference ranges are not reported, since discordance with absolute values may lead to misinterpretation of CBC data. Current Interpretive Data was last revised on 2018. Lymphocyte pct 23.3 % [facility] ([place]) Comment: Interpretive Data Percent cell count reference ranges are not reported, since discordance with absolute values may lead to misinterpretation of CBC data. Current Interpretive Data was last revised on 2018. Monocyte pct 7.6 % [facility] ([place]) Comment: Interpretive Data Percent cell count reference ranges are not reported, since discordance with absolute values may lead to misinterpretation of CBC data. Current Interpretive Data was last revised on 2018. Eosinophil pct 2.4 % [facility] ([place]) Comment: Interpretive Data Percent cell count reference ranges are not reported, since discordance with absolute values may lead to misinterpretation of CBC data. Current Interpretive Data was last revised on 2018. Basophil pct 0.7 % [facility] ([place]) Comment: Interpretive Data Percent cell count reference ranges are not reported, since discordance with absolute values may lead to misinterpretation of CBC data. Current Interpretive Data was last revised on 2018. Blood 02/03/2025 1:17 PM CDT 02/03/2025 1:47 PM CDT us Jose Antonio Grande MD LAB BLOOD ORDERABLES Final Re sult [facility] ([place]) 1 [facility] Department [place] [address] * Renin activity (02/03/2025 1:17 PM CDT) Renin <0.6 ng/mL/H [facility] ref [facility] Comment: REFERENCE VALUE (Peripheral vein specimen) Na-deplete, upright: Mean: 5.9 Range: 2.9-10.8 Na-replete, upright: Mean: 1.0 Range: < or =0.6-3.0 ADDITIONAL INFORMATION Testing performed by Liquid Chromatography-Tandem Mass Spectrometry (LC-MS/MS). This test was developed and its performance characteristics determined by [facility] in a manner consistent with CLIA requirements. This test has not been cleared or approved by the U.S. Food and Drug Administration. Test Performed by: [facility] [place] [place] [address] Surgery Consultant: Stephanie Gr Ph.D.; CLIA# [id number] Blood 02/03/2025 1:17 PM CDT 02/03/2025 1:47 PM CDT us Jose Antonio Grande MD LAB BLOOD ORDERABLES Final Re sult [facility] ([place]) 1 [facility] Department [place] [address] [facility] ref [facility] * (ABNORMAL) Urinalysis reflex to microscopic and culture Urine (02/03/2025 1:17 PM CDT) Color, ur Yellow Yellow Clarity, ur Turbid(A) Clear [facility] ([place]) Specific gravity, ur 1.026 1.003 - 1.030 [facility] ([place]) pH, urine 5.5 [facility] ([place]) Comment: Interpretive Data U rine pH is affected by diet, medications, systemic acid-base disturbances, and renal tubular function. pH may affect urinary stone formation. For example, urine pH below 6.0 may help reduce the tendency for calcium phosphate stones and pH greater than 6.0 may reduce the tendency for uric acid stone formation. Source: [facility] Current Interpretive Data was last revised on 2017 Protein, ur ql Trace Negative [facility] ([place]) Glucose, ur ql Negative Negative [facility] ([place]) Ketones, ur Negative Negative [facility] ([place]) Bilirubin, ur Negative Negative [facility] ([place]) Blood, ur Trace(A) Negative [facility] ([place]) Urobilinogen, ur <2.0 <2.0 mg/dL [facility] ([place]) Nitrite, ur Negative Negative [facility] ([place]) Leukocyte esterase, ur Negative Negative [facility] ([place]) UA reflex comment Reflex to microscopic UA will be performed. [facility] ([place]) Urine 02/03/2025 1:17 PM CDT 02/03/2025 2:22 PM CDT us Jose Antonio Grande MD LAB MICROBIOLOGY - GENERAL OR DERABLES Final Result [facility] ([place]) 1 [facility] Department [place] [address] * CBC with auto differential (02/03/2025 1:17 PM CDT) WBC 8.25 3.80 - 9.90 K/cumm Hgb 14.1 11.9 - 15.5 g/dL [facility] ([place]) Hct 42.4 35.6 - 45.5 % [facility] ([place]) Plt 339 150 - 400 K/cumm [facility] ([place]) MPV 11.5 9.1 - 12.3 fL [facility] ([place]) RBC 4.65 3.90 - 5.20 M/cumm [facility] ([place]) MCV 91.2 81.3 - 96.4 fL [facility] ([place]) MCH 30.3 27.1 - 33.3 pg [facility] ([place]) MCHC 33.3 32.3 - 35.7 g/dL [facility] ([place]) RDW CV 13.8 11.1 - 14.9 % [facility] ([place]) RDW SD 46.5 35.7 - 48.1 fL [facility] ([place]) NRBC abs 0.00 0.00 - 0.01 K/cumm [facility] ([place]) Blood 02/03/2025 1:17 PM CDT 02/03/2025 1:47 PM CDT Jose Antonio Grande MD LAB BLOOD ORDERABLES Final Re sult Performing Organization Address [facility] Co de Phone Number [facility] ([place]) 1 [facility] [place] [address] * Protein / creatinine ratio, urine, random (02/03/2025 1:17 PM CDT) Protein, ur, quant 24.5 mg/dL Comment: Interpretive Data No reference range established. Current interpretive data was last revised 2019. Creatinine Ur 260.9 mg/dL [facility] ([place]) Comment: Interpretive Data No reference range established. Current interpretive data was last revised 2019. Protein/creatinin e ratio 93.9 0.0 - 180.0 mg/g CR [facility] ([place]) Urine 02/03/2025 1:17 PM CDT 02/03/2025 2:22 PM CDT Jose Antonio Grande MD LAB URINE ORDERABLES Final Re sult [facility] ([place]) [address] [facility] [place] [address] * Aldosterone (02/03/2025 1:17 PM CDT) Aldosterone 7.8 <=21 ng/dL [facility] ref [facility] Comment: ADDITIONAL INFORMATION Reference range for patients 11 years and older is based on upright A.M. collection from subjects without sodium restrictions. This test was developed and its performance characteristics determined by [facility] in a manner consistent with CLIA requirements. This test has not been cleared or approved by the U.S. Food and Drug Administration. Test Performed by: [facility] - [facility] [address] [id number] Surgery Consultant: Stephanie Gr Ph.D.; CLIA# [id number] Blood 02/03/2025 1:17 PM CDT 02/03/2025 1:47 PM CDT us Jose Antonio Grande MD LAB BLOOD ORDERABLES Final Re sult Performing Organization Address [facility]/ZIP Co de Phone Number [facility] ([place]) 1 [facility] [place] [address] [facility] ref [facility] * Sodium, urine, random (02/03/2025 1:17 PM CDT) Sodium, ur 88 mmol/L Comment: Interpretive Data No reference range established. Current interpretive data was last revised 2019. Urine 02/03/2025 1:17 PM CDT 02/03/2025 2:22 PM CDT Narrative [facility] ([place]) - 02/03/2025 3:14 PM CDT No normal range us Jose Antonio Grande MD LAB URINE ORDERABLES Final Re sult Performing Organization Address [facility]/ZIP Co de Phone Number [facility] ([place]) 1 [facility] [place] [address] * Potassium, urine, random (02/03/2025 1:17 PM CDT) Potassium conc, ur 103.4 mmol/L Comment: Interpretive Data No reference range established. Current interpretive data was last revised 2019. Urine 02/03/2025 1:17 PM CDT 02/03/2025 2:22 PM CDT us Jose Antonio Grande MD LAB URINE ORDERABLES Final Re sult Performing Organization Address [facility]/ZIP Co de Phone Number [facility] ([place]) 1 [facility] [place] [address] * Chloride, urine, random (02/03/2025 1:17 PM CDT) Chloride, ur 185 mmol/L Comment: Interpretive Data No reference range established. Current interpretive data was last revised 2019. Urine 02/03/2025 1:17 PM CDT 02/03/2025 2:22 PM CDT Narrative [facility] ([place]) - 02/03/2025 3:14 PM CDT No normal range Jose Antonio Grande MD LAB URINE ORDERABLES Final Re sult Performing Organization Address [facility] Co de Phone Number [facility] ([place]) 1 [facility] [place] [address] * (ABNORMAL) Vitamin D 25 hydroxy (02/03/2025 1:17 PM CDT) Pathologist [facility] [place] Vitamin D 25-OH 12(L) 30 - 80 ng/mL Blood 02/03/2025 1:17 PM CDT 02/03/2025 1:47 PM CDT us Jose Antonio Grande MD LAB BLOOD ORDERABLES Final Re sult Performing Organization Address City/[facility]/ZIP Co de Phone Number [facility] ([place]) [address] [facility] [place] [address] * (ABNORMAL) Urinalysis, microscopic only (02/03/2025 1:17 PM CDT) WBC, ur 0-5 0 - 5 /HPF RBC, ur 0-2 0 - 2 /HPF [facility] ([place]) Epithelial cells, squamous, ur 1-5 0 - 5 /HPF [facility] ([place]) Bacteria, ur 2+(A) [facility] ([place]) Mucous, ur Present(A) [facility] A ([place]) Hyaline casts, ur 6-10 0 - 10 /LPF [facility] ([place]) Culture Reflex Comment Reflex conditions for urine culture (WBC >10) not met. [facility] Urine 02/03/2025 1:17 PM CDT 02/03/2025 2:22 PM CDT us Jose Antonio Grande MD LAB URINE ORDERABLES Final Re sult Performing Organization Address [facility]/ZIP Co de Phone Number [facility] ([place]) 1 [facility] [place] [address] * Uric acid (02/03/2025 1:17 PM CDT) Uric acid 4.2 2.5 - 7.0 mg/dL Blood 02/03/2025 1:17 PM CDT 02/03/2025 1:47 PM CDT us Jose Antonio Grande MD LAB BLOOD ORDERABLES Final Re sult Performing Organization Address [facility] Co de Phone Number AMARIS [facility] ([place]) 1 [facility] [place] [address] * (ABNORMAL) TSH (02/03/2025 1:17 PM CDT) Thyroid Stimulating Hormone 4.72(H) 0.30 - 4.20 mcIUnit/mL Blood 02/03/2025 1:17 PM CDT 02/03/2025 1:47 PM CDT us Jose Antonio Grande MD LAB BLOOD ORDERABLES Final Re sult Performing Organization Address [facility] Co de Phone Number AM[facility] ([place]) 1 [facility] [place] [address] * T4, free (02/03/2025 1:17 PM CDT) Free T4 1.09 0.90 - 1.70 ng/dL Blood 02/03/2025 1:17 PM CDT 02/03/2025 1:47 PM CDT us Jose Antonio Grande MD LAB BLOOD ORDERABLES Final Re sult [facility] ([place]) 1 [facility] [place] [address] * Phosphorus (02/03/2025 1:17 PM CDT) Pathologist [facility] [place] Phosphorus, pl 2.9 2.3 - 4.5 mg/dL Blood 02/03/2025 1:17 PM CDT 02/03/2025 1:47 PM CDT us Jose Antonio Grande MD LAB BLOOD ORDERABLES Final Re sult Performing Organization Address City/[facility] Hospital/[facility] Co de Phone Number [facility] ([place]) 1 [facility] [place] [address] * (ABNORMAL) PTH (02/03/2025 1:17 PM CDT) [facility] PTH 67(H) 15 - 65 pg/mL Blood 02/03/2025 1:17 PM CDT 02/03/2025 1:47 PM CDT us Jose Antonio Grande MD LAB BLOOD ORDERABLES Final Re sult Performing Organization Address City/Va Hospital/ZIP Co de Phone Number [facility] ([place]) 1 [facility] [place] [address] * Magnesium (02/03/2025 1:17 PM CDT) Pathologist [facility] [place] Magnesium 1.9 1.4 - 2.5 mg/dL Blood 02/03/2025 1:17 PM CDT 02/03/2025 1:47 PM CDT Jose Antonio Grande MD LAB BLOOD ORDERABLES Final Re sult Performing Organization Address [facility] Co de Phone Number [place] 1 [place] [address] * Hemoglobin A1c (02/03/2025 1:17 PM CDT) Hgb A1C 5.2 4.0 - 5.6 % Estimated Average Glucose 103 mg/dL [facility] ([place]) Comment: The ADA recommends reporting an estimated Average Glucose (eAG) with all Hemoglobin A1c results using the equation derived from a study of 507 normal and diabetic adults. Minority populations were underrepresented and children were not included. (Diabetes Care 31:1628-6064, 2008). The eAG is not equivalent to a fasting glucose. Blood 02/03/2025 1:17 PM CDT 02/03/2025 1:47 PM CDT Jose Antonio Grande MD LAB BLOOD ORDERABLES Final Re sult Performing Organization Address [facility] Co de Phone Number [facility] ([place]) 1 [place] [address] * Creatinine (02/03/2025 1:17 PM CDT) Creatinine 0.85 0.60 - 1.10 mg/dL Urine/Blood 02/03/2025 1:17 PM CDT 02/03/2025 1:47 PM CDT Jose Antonio Grande MD LAB BLOOD ORDERABLES Final Re sult Performing Organization Address City/[facility] Hospital/[facility] Co de Phone Number [facility] ([place]) 1 [place] [address] * Bilirubin, direct (02/03/2025 1:17 PM CDT) Bilirubin, direct <0.1 0.1 - 0.3 mg/dL Blood 02/03/2025 1:17 PM CDT 02/03/2025 1:47 PM CDT Jose Antonio Grande MD LAB BLOOD ORDERABLES Final Re sult [facility] ([place]) 1 [facility] [place] [address] * (ABNORMAL) Comprehensive metabolic panel (02/03/2025 1:17 PM CDT) Sodium 140 135 - 145 mmol/L Potassium, pl 4.2 3.3 - 4.9 mmol/L [facility] ([place]) Chloride 109 97 - 110 mmol/L [facility] ([place]) CO2 18(L) 22 - 32 mmol/L [facility] ([place]) Anion gap 13 2 - 15 mmol/L [facility] ([place]) BUN 12 6 - 25 mg/dL [facility] ([place]) Creatinine 0.87 0.60 - 1.10 mg/dL [facility] ([place]) Glucose 98 70 - 199 mg/dL [facility] ([place]) Comment: Interpretive Data Fasting glucose >/= 126 mg/dl is diagnostic for diabetes. Fasting is defined as no caloric intake for at least 8 hours. Fasting glucose between 100 mg/dl to 125 mg/dl is diagnostic of prediabetes. In a patient with classic symptoms of hyperglycemia or hyperglycemic crisis, a random glucose >/= 200 mg/dl is diagnostic for diabetes. In the absence of unequivocal hyperglycemia, results should be confirmed by repeat testing. The classification and Diagnosis of Diabetes Diabetes Care 2021; 46: S19-S40. Current interpretive data was last revised 2022. Calcium 9.2 8.5 - 10.3 mg/dL [facility] ([place]) Bilirubin, total 0.3 0.1 - 1.2 mg/dL [facility] ([place]) Protein, pl 7.1 6.5 - 8.5 g/dL [facility] ([place]) Albumin 4.1 3.5 - 5.0 g/dL [facility] ([place]) Alk phos 94 40 - 130 Units/L [facility] ([place]) ALT 10 7 - 45 Units/L [facility] ([place]) AST 12 10 - 45 Units/L [facility] ([place]) Blood 02/03/2025 1:17 PM CDT 02/03/2025 1:47 PM CDT Jose Antonio Grande MD LAB BLOOD ORDERABLES Final Re sult Performing Organization Address City/[facility] Hospital/[facility] Co de Phone Number [facility] ([place]) [address] [facility] [place] [address] * (ABNORMAL) Citrate, urine, 24 hour (02/03/2025 11:30 AM CDT) Citric acid, 24 hr ur 139(L) 321 - 1191 mg/24H [facility] Comment: ADDITIONAL INFORMATION This test was developed and its performance characteristics determined by [facility] in a manner consistent with CLIA requirements. This test has not been cleared or approved by the U.S. Food and Drug Administration. Urine 02/03/2025 11:3 0 AM CDT 02/03/2025 1:47 PM CDT Jose Antonio Grande MD LAB URINE ORDERABLES Final Re sult Performing Organization Address City/Va Hospital/ZIP Co de Phone Number [facility] ([place]) 1 [facility] [place] [address] [facility] * URINE MISC TO MOBILE (02/03/2025 11:30 AM CDT) Test name, chem OXU Oxalate, 24 Hr, U [facility] Misc See Comment [facility] [place] ([place]) Comment: Test Result Flag Unit RefValue Oxalate, 24 Hr, U Oxalate, 24 Hr, U 0.26 mmol/24 h 0.11 - 0.46 (mmol/24 hr) ADDITIONAL INFORMATION This test has been modified from the receptionist scheduler's instructions. Its performance characteristics were determined by [facility] in a manner consistent with CLIA requirements. This test has not been cleared or approved by the U.S. Food and Drug Administration. Oxalate, 24 Hr, U 22.9 mg/24 h 9.7 - 40.5 (mg/24 hr) Collection Duration 24 h Urine Volume 1600 mL Test Performed by: [address] [address] Surgery Consultant: Stephanie Gr Ph.D.; CLIA# [id number] Urine 02/03/2025 11:3 0 AM CDT 02/03/2025 1:47 PM CDT us Jose Antonio Grande MD LAB URINE ORDERABLES Final Re sult Performing Organization Address [facility] Co de Phone Number [facility] [place] [place] 1 [facility] [place] [address] [facility] * Volume and period, urine, 24 hour (02/03/2025 11:30 AM CDT) Volume, ur 1,600 mL Period, Urine Collection 1,440 min [facility] ([place]) Urine 02/03/2025 11:3 0 AM CDT 02/03/2025 1:47 PM CDT us Jose Antonio Grande MD LAB URINE ORDERABLES Final Re sult Performing Organization Address City/[facility] Hospital/[facility] Co de Phone Number [facility] ([place]) 1 [facility] [place] [address] * Volume and period, urine, 24 hour (02/03/2025 11:30 AM CDT) Volume, ur 1,600 mL Period, Urine Collection 1,440 min [facility] ([place]) Urine 02/03/2025 11:3 0 AM CDT 02/03/2025 1:47 PM CDT us Jose Antonio Grande MD LAB URINE ORDERABLES Final Re sult [facility] ([place]) [address] [place] [address] [place] [address] * Volume and period, urine, 24 hour (02/03/2025 11:30 AM CDT) Volume, ur 1,600 mL Period, Urine Collection 1,440 min [facility] ([place]) Urine 02/03/2025 11:3 0 AM CDT 02/03/2025 1:47 PM CDT Jose Antonio Grande MD LAB URINE ORDERABLES Final Re sult Performing Organization Address [facility] Co de Phone Number [facility] ([place]) [address] [place] [address] [place] [address] * (ABNORMAL) Sodium, urine, 24 hour (02/03/2025 11:30 AM CDT) Sodium, 24 hr ur 229(H) 40 - 220 mmol/24H Urine 02/03/2025 11:3 0 AM CDT 02/03/2025 1:47 PM CDT us Jose Antonio Grande MD LAB URINE ORDERABLES Final Re sult Performing Organization Address City/Va Hospital/ZIP Co de Phone Number [facility] ([place]) 1 [facility] [place] [address] * (ABNORMAL) Creatinine clearance, urine, 24 hour (02/03/2025 11:30 AM CDT) Creatinine Clearance 135(H) 60 - 130 mL/min Creatinine, 24 hr, ur 1.7(H) 0.6 - 1.5 g/24H [facility] ([place]) Urine/Blood 02/03/2025 11:3 0 AM CDT 02/03/2025 1:47 PM CDT Jose Antonio Grande MD LAB URINE ORDERABLES Final Re sult Performing Organization Address City/Va Hospital/ZIP Co de Phone Number [facility] ([place]) [address] [place] [address] * Calcium, urine, 24 hour (02/03/2025 11:30 AM CDT) Pathologist [facility] [place] Calcium, 24 hr ur 203 25 - 300 mg/24H Comment:Testing performed by : [facility], [address] [place] [address], [facility] Urine 02/03/2025 11:3 0 AM CDT 02/03/2025 7:58 PM CDT Jose Antonio Grande MD LAB URINE ORDERABLES Final Re sult Performing Organization Address [facility] Co de Phone Number [facility] ([place]) [address] [place] [address] * Troponin T high-sensitivity 2-hour (01/22/2025 11:38 PM CDT) Trop T hs <6 <=14 ng/L Comment: Interpretive Data For further hscTnT resources including the diagnostic algorithm and an aid in interpretation, copy and paste this link: https://nrl.testcatalog.org/show/hsTrop Current Interpretive Data last revised 2020. Trop T hs delta 0 ng/L [facility] ([place]) Trop T hs interp Insignificant [facility] ([place]) Blood 01/22/2025 11:3 8 PM CDT 01/22/2025 11:41 PM CDT us Rogelio Herman MD LAB BLOOD ORDERABLES Final Res ult [facility] [place] 1 [facility] [place] [address] * CT Abdomen Pelvis W Contrast (01/22/2025 11:25 PM CDT) Anatomical Region Laterality Modality Body N/A Computed Tomogra phy 01/22/2025 11:4 3 PM CDT Narrative 01/22/2025 11:47 PM CDT EXAM DESCRIPTION: CT ABDOMEN PELVIS W CONTRAST REASON FOR STUDY: Abdominal pain, acute, nonlocalized Mid abdominal pain intermittently x 1.5 weeks with occasional nausea and vomiting. Hx of periumbilical hernia. TECHNIQUE: CT scan of the abdomen and pelvis performed with intravenous and without oral contrast using helical scanning technique with dynamic intravenous contrast injection. Reconstructed coronal and sagittal MPR images reviewed. All images stored on PACS. Automated exposure control was used as a dose optimization technique for this examination. CONTRAST TYPE/DOSE: 100mL of IOVERSOL 350 MG IODINE/ML INTRAVENOUS SYRINGE injected via intravenous COMPARISON: 11/03/2024 FINDINGS: LOWER CHEST: No significant pulmonary abnormalities. No effusion. LIVER: Normal size. No identified cystic or solid masses. GALLBLADDER: No stones identified. No wall thickening or inflammatory changes. BILE DUCTS: No intrahepatic or extrahepatic ductal dilatation. SPLEEN: Normal size. No focal lesions. PANCREAS: No identified cystic or solid masses. No significant calcifications. No adjacent inflammation or peripancreatic fluid collections. Pancreatic duct not dilated. ADRENALS: Stable 2 cm low-density lesion on the left adrenal gland, likely representing an adenoma. The right adrenal gland is normal. KIDNEYS/URINARY TRACT: Small left renal cysts. Punctate nonobstructing bilateral renal stones. No obstructing renal or ureteral calculus. Urinary bladder is unremarkable. GI: No dilated bowel loops. No obvious wall thickening. Normal appendix. No significant diverticular disease. PERITONEUM: No ascites or free air. RETROPERITONEUM: No mass or adenopathy. REPRODUCTIVE: No significant abnormality. VASCULATURE: No abdominal aortic aneurysm. MUSCULOSKELETAL: No significant abnormality. OTHER: 3.3 cm x 4.3 cm periumbilical hernia containing only fat. IMPRESSION: Stable 2 cm low-density lesion on the left adrenal gland, likely representing an adenoma. Small left renal cysts. Punctate nonobstructing bilateral renal stones. No obstructing renal or ureteral calculus. 3.3 cm x 4.3 cm periumbilical hernia containing only fat. THIS IS AN ELECTRONICALLY VERIFIED FINAL REPORT 01/22/2025 11:47 PM - Electronically signed by Dylan Torre M.D. KT: LAUREN Report ID: [id number] Reading Location: [id number] Procedure Note Dylan Trore MD - 01/22/2025 EXAM DESCRIPTION: CT ABDOMEN PELVIS W CONTRAST REASON FOR STUDY: Abdominal pain, acute, nonlocalized Mid abdominal pain intermittently x 1.5 weeks with occasional nausea and vomiting. Hx of periumbilical hernia. TECHNIQUE: CT scan of the abdomen and pelvis performed with intravenousand without oral contrast using helical scanning technique with dynamic intravenous contrast injection. Reconstructed coronal and sagittal MPRimages reviewed. All images stored on PACS. Automated exposure control was usedas a dose optimization technique for this examination. CONTRAST TYPE/DOSE: 100mL of IOVERSOL 350 MG IODINE/ML INTRAVENOUSSYRINGE injected via intravenous COMPARISON: 11/03/2024 FINDINGS: LOWER CHEST: No significant pulmonary abnormalities. No effusion. LIVER: Normal size. No identified cystic or solid masses. GALLBLADDER: No stones identified. No wall thickening or inflammatory changes. BILE DUCTS: No intrahepatic or extrahepatic ductal dilatation. SPLEEN: Normal size. No focal lesions. PANCREAS: No identified cystic or solid masses. No significant calcifications. No adjacent inflammation or peripancreatic fluidcollections. Pancreatic duct not dilated. ADRENALS: Stable 2 cm low-density lesion on the left adrenal gland,likely representing an adenoma. The right adrenal gland is normal. KIDNEYS/URINARY TRACT: Small left renal cysts. Punctate nonobstructing bilateral renal stones. No obstructing renal or ureteral calculus.Urinary bladder is unremarkable. GI: No dilated bowel loops. No obvious wall thickening. Normalappendix. No significant diverticular disease. PERITONEUM: No ascites or free air. RETROPERITONEUM: No mass or adenopathy. REPRODUCTIVE: No significant abnormality. VASCULATURE: No abdominal aortic aneurysm. MUSCULOSKELETAL: No significant abnormality. OTHER: 3.3 cm x 4.3 cm periumbilical hernia containing only fat. IMPRESSION: Stable 2 cm low-density lesion on the left adrenal gland, likelyrepresenting an adenoma. Small left renal cysts. Punctate nonobstructing bilateral renal stones.No obstructing renal or ureteral calculus. 3.3 cm x 4.3 cm periumbilical hernia containing only fat. THIS IS AN ELECTRONICALLY VERIFIED FINAL REPORT 01/22/2025 11:47 PM - Electronically signed by Dylan Torre M.D. KT: LAUREN Report ID: [id number] Reading Location: [place] [address] Rogelio Herman MD IMG CT PROCEDURES Final Result * (ABNORMAL) Differential, auto (01/22/2025 10:22 PM CDT) Neutrophil abs 6.9(H) 1.5 - 6.5 K/cumm Imm gran abs 0.0 0.0 - 0.1 K/cumm [facility] ([place]) Lymphocyte abs 2.6 0.8 - 3.3 K/cumm [facility] ([place]) Monocyte abs 1.1(H) 0.2 - 0.8 K/cumm [facility] ([place]) Eosinophil abs 0.2 0.0 - 0.5 K/cumm [facility] ([place]) Basophil abs 0.1 0.0 - 0.1 K/cumm [facility] ([place]) Neutrophil pct 63.7 % [facility] ([place]) Comment: Interpretive Data Percent cell count reference ranges are not reported, since discordance with absolute values may lead to misinterpretation of CBC data. Current Interpretive Data was last revised on 2018. Imm gran pct 0.3 % [facility] ([place]) Comment: Interpretive Data Percent cell count reference ranges are not reported, since discordance with absolute values may lead to misinterpretation of CBC data. Current Interpretive Data was last revised on 2018. Lymphocyte pct 23.6 % [facility] ([place]) Comment: Interpretive Data Percent cell count reference ranges are not reported, since discordance with absolute values may lead to misinterpretation of CBC data. Current Interpretive Data was last revised on 2018. Monocyte pct 9.6 % [facility] ([place]) Comment: Interpretive Data Percent cell count reference ranges are not reported, since discordance with absolute values may lead to misinterpretation of CBC data. Current Interpretive Data was last revised on 2018. Eosinophil pct 2.2 % [facility] ([place]) Comment: Interpretive Data Percent cell count reference ranges are not reported, since discordance with absolute values may lead to misinterpretation of CBC data. Current Interpretive Data was last revised on 2018. Basophil pct 0.6 % [facility] ([place]) Comment: Interpretive Data Percent cell count reference ranges are not reported, since discordance with absolute values may lead to misinterpretation of CBC data. Current Interpretive Data was last revised on 2018. Blood 01/22/2025 10:2 2 PM CDT 01/22/2025 10:23 PM CDT us Rogelio Herman MD LAB BLOOD ORDERABLES Final Res ult [facility] ([place]) 1 [facility] [place] [address] * (ABNORMAL) CBC with auto differential (01/22/2025 10:22 PM CDT) WBC 10.9(H) 3.8 - 9.9 K/cumm Hgb 13.0 11.9 - 15.5 g/dL [facility] ([place]) Hct 39.6 35.6 - 45.5 % [facility] ([place]) Plt 319 150 - 400 K/cumm [facility] ([place]) MPV 10.4 9.1 - 12.3 fL [facility] ([place]) RBC 4.42 3.90 - 5.20 M/cumm [facility] ([place]) MCV 89.6 81.3 - 96.4 fL [facility] ([place]) MCH 29.4 27.1 - 33.3 pg [facility] ([place]) MCHC 32.8 32.3 - 35.7 g/dL [facility] ([place]) RDW CV 13.9 11.1 - 14.9 % [facility] ([place]) RDW SD 45.0 35.7 - 48.1 fL [facility] NRBC abs 0.00 0.00 - 0.01 K/cumm [facility] ([place]) Blood 01/22/2025 10:2 2 PM CDT 01/22/2025 10:25 PM CDT us Rogelio Herman MD LAB BLOOD ORDERABLES Final Res ult [facility] ([place]) 1 [facility] [place] [address] * (ABNORMAL) Urinalysis reflex to microscopic and culture Urine (01/22/2025 9:47 PM CDT) Color, ur Yellow Yellow Clarity, ur Clear Clear [facility] ([place]) Specific gravity, ur 1.031(H) 1.003 - 1.030 [facility] ([place]) pH, urine 6.0 [facility] Comment: Interpretive Data U rine pH is affected by diet, medications, systemic acid-base disturbances, and renal tubular function. pH may affect urinary stone formation. For example, urine pH below 6.0 may help reduce the tendency for calcium phosphate stones and pH greater than 6.0 may reduce the tendency for uric acid stone formation. Source: [facility] Current Interpretive Data was last revised on 2017 Protein, ur ql Trace Negative [facility] ([place]) Glucose, ur ql Negative Negative [facility] ([place]) Ketones, ur Trace Negative [facility] ([place]) Bilirubin, ur Negative Negative [facility] ([place]) Blood, ur Negative Negative [facility] ([place]) Urobilinogen, ur <2.0 <2.0 mg/dL [facility] ([place]) Nitrite, ur Negative Negative [facility] ([place]) Leukocyte esterase, ur Negative Negative [facility] ([place]) UA reflex comment Reflex conditions for microscopic UA and culture not met. [facility] ([place]) Urine 01/22/2025 9:47 PM CDT 01/22/2025 9:51 PM CDT us Rogelio Herman MD LAB MICROBIOLOGY - GENERAL ORD ERABLES Final Result Performing Organization Address City/[facility] Hospital/[facility] Co de Phone Number [facility] ([place]) [address] [facility] [place] [address] * POCT hCG, urine (01/22/2025 9:47 PM CDT) HCG, ur, POC Negative Negative Lot Number [id number] QC Backgroud Clear Acceptable QC Control Line Acceptable Urine 01/22/2025 9:47 PM CDT us Rogelio Herman MD POINT OF CARE TEST ORDERABLES Final Result * Troponin T high-sensitivity series (baseline, 2hr, 4hr, 6hr) (01/22/2025 9:36 PM CDT) Trop T hs <6 <=14 ng/L Comment: Interpretive Data For further hscTnT resources including the diagnostic algorithm and an aid in interpretation, copy and paste this link: https://nrl.testcatalog.org/show/hsTrop Current Interpretive Data last revised 2020. Blood 01/22/2025 9:36 PM CDT 01/22/2025 9:39 PM CDT us Rogelio Herman MD LAB BLOOD ORDERABLES Final Res ult [facility] ([place]) [address] [facility] [place] [address] * eGFR (01/22/2025 9:36 PM CDT) eGFR 84 >=60 mL/min/1. 73 m2 Comment: Interpretive Data Reference Interval Normal >/= 90 mL/min/1.73m2 Mildly decreased* 60 - 89 mL/min/1.73m2 Mildly to moderately decreased 45 - 59 mL/min/1.73m2 Moderately to severely decreased 30 - 44 mL/min/1.73m2 Severely decreased 15 - 29 mL/min/1.73m2 Kidney Failure < 15 mL/min/1.73m2 *Relative to young adult level Estimated glomerular filtration rate is determined by the 2020 CKD-EPI equation recommended by the National Kidney Foundation (A Unifying Approach to GFR Estimation: Recommendations of the NKF-ASK Task Force on Reassessing the Inclusion of Race in Diagnosing Kidney Disease, JASN 2020). The CKD-EPI equation should not be used for patients with unstable renal function and has not been validated in children and those over 70. Current interpretive data was last reviewed 2021. Blood 01/22/2025 9:36 PM CDT 01/22/2025 9:39 PM CDT Rogelio Herman MD LAB BLOOD ORDERABLES Final Res ult Performing Organization Address City/Va Hospital/ZIP Co de Phone Number [facility] ([place]) 1 [facility] [place] [address] * Lipase (01/22/2025 9:36 PM CDT) Pathologist [facility] [place] Lipase 40 10 - 99 Units/L Blood Venous blood specimen / Unknown 01/22/2025 9:36 PM CDT 01/22/2025 9:39 PM CDT Rogelio Herman MD LAB BLOOD ORDERABLES Final Res ult [facility] ([place]) [address] [facility] [place] [address] * (ABNORMAL) Comprehensive metabolic panel (01/22/2025 9:36 PM CDT) Sodium 137 135 - 145 mmol/L Potassium, pl 4.2 3.3 - 4.9 mmol/L [facility] ([place]) Chloride 108 97 - 110 mmol/L [facility] ([place]) CO2 16(L) 22 - 32 mmol/L [facility] ([place]) Anion gap 13 2 - 15 mmol/L [facility] ([place]) BUN 14 6 - 25 mg/dL [facility] ([place]) Creatinine 0.88 0.60 - 1.10 mg/dL [facility] ([place]) Glucose 120 70 - 199 mg/dL [facility] ([place]) Comment: Interpretive Data Fasting glucose >/= 126 mg/dl is diagnostic for diabetes. Fasting is defined as no caloric intake for at least 8 hours. Fasting glucose between 100 mg/dl to 125 mg/dl is diagnostic of prediabetes. In a patient with classic symptoms of hyperglycemia or hyperglycemic crisis, a random glucose >/= 200 mg/dl is diagnostic for diabetes. In the absence of unequivocal hyperglycemia, results should be confirmed by repeat testing. The classification and Diagnosis of Diabetes Diabetes Care 2021; 46: S19-S40. Current interpretive data was last revised 2022. Calcium 8.6 8.5 - 10.3 mg/dL [facility] Bilirubin, total <0.2 0.1 - 1.2 mg/dL [facility]) Protein, pl 7.1 6.5 - 8.5 g/dL [facility] ([place]) Albumin 4.1 3.5 - 5.0 g/dL [facility] ([place]) Alk phos 91 40 - 130 Units/L [facility] ([place]) ALT 9 7 - 45 Units/L [facility] ([place]) AST 16 10 - 45 Units/L [facility] (ANASTASIYA) Comment: Hemolysis present. Results may be affected. Slightly Hemolyzed Specimen Blood 01/22/2025 9:36 PM CDT 01/22/2025 9:39 PM CDT us Rogelio Herman MD LAB BLOOD ORDERABLES Final Res ult AM[facility]IS [facility]BY (ANASTASIYA) 1 [facility] Department [place] [address] * ECG 12 lead (01/22/2025 9:07 PM CDT) 01/22/2025 9:07 PM CDT Narrative [facility] - 01/23/2025 10:24 AM CDT Vent Rate: 84 bpm RR Interval: 710 msec RI Interval: 154 msec QRS Duration: 83 msec QT Interval: 341 msec QTC Interval: 382 msec P-R-T [place]: 44 - 6 - 21 degrees IMPRESSION: SINUS RHYTHM LOW QRS VOLTAGE IN PRECORDIAL LEADS [QRS DEFLECTION < 1.0 mV IN CHEST LEADS] POSSIBLE ANTERIOR MYOCARDIAL INFARCTION , OF INDETERMINATE AGE [30 ms Q WAVE IN V3/V4, OR R < 0.2 mV IN V4] ABNORMAL ECG NO CHANGE FROM PREVIOUS TRACING NOTED Electronically Signed By: Musa Hester MD Rogelio Herman MD ECG ORDERABLES Final Result Performing Organization Address City/State/[facility] Co de Phone Number [facility] from Last 3 Months Insurance [facility] [place] HMO [facility] HMO/PPO Address: [facility] [id number] [place] [address] [facility] H[facility]/PPO Address: [address] [address] [place] [address] [facility] H[facility]/PPO Address: [address] [address] [facility] H[facility]/PPO Address: [place] [phone] [facility] H[facility]/PPO Address: [address] [address] [place] [address] Advance Directives For more information, please contact: [phone] * Full Code (Latest Code Status on File) Date Activated Date Inactivated Comments 09/05/2021 4:57 PM 09/07/2021 8:11 PM Care Teams Pot Lining Supervisor Relationship Specialty [place] [id number] [facility] [address] [place] [address] PCP - General 02/05/21
--- OUTSIDE RECORDS SUMMARY | 2025-03-31 09:26 | XMS_ITS | Clinical Summary ---
Author Organization [facility] Address [address] [place] [address] Phone Care Team Providers Care Fulfillment Specialist Name Role Phone Unavailable Primary Care Provider Unavailabl e Allergies Active Allergy Reactions Criticality Noted Date Comments Penicillin G Rash High 04/09/2022 Medications topiramate (TOPAMAX) 100 MG Tablet Take 100 mg by mouth in the morning and at bedtime. 2 Active metoprolol Succinate (TOPROL-XL) 100 MG TABLET SR 24 HR Take 100 mg by mouth nightly. 2 Active Rimegepant Sulfate (Nurtec) 75 MG TABLET DISPERSIBLE 75 mg by Sublingual route as needed. 2 Active vitamin b-12 (CYANOCOBALAMIN ) 100 MCG Tablet Take 100 mcg by mouth nightly. Active Multiple Vitamin (MULTI-VITAMIN PO) Take by mouth nightly. Active methylPREDNISol one (Medrol) 4 MG Tablet Therapy PackIndications :Cough, unspecified type,Chest congestion,Kena l URI with cough Use as per instructions on package. 21 Tablet 3 Active promethazine-de xtromethorphan (PROMETHAZINE-D M) 6.25-15 MG/5ML SyrupIndication s:Cough, unspecified type Take 5 mL by mouth every 4 hours as needed for Cough. 240 mL 3 Active Active Problems Problem Noted Date Diagnosed Date Migraine 09/25/2022 Immunizations Immunization Administration Dates Next Due TDAP Vaccine 06/19/2016 Social History Tobacco Use Types Packs/Day Years Used Date Smoking Tobacco: Never Smokeless Tobacco: Never Tobacco Cessation:Counseling Given: Not Answered Alcohol Use Standard Drinks/Week Comments Not Currently 0 (1 standard drink = 0.6 oz pur e alcohol) Sexually Active Control Partners Comments Not Currently Comments No Sex and Gender Information Value Date Recorded Sex Assigned at Not on file Legal Sex Female 2:50 PM [employer]OWER [employer] Gender Identity Not on file Sexual Orientation Not on file Last Filed Vital Signs Vital Sign Reading Time Taken Comments Blood Pressure 112/86 01/04/2023 8:14 AM POWER [employer] Pulse 72 01/04/2023 8:14 AM POWER [employer]IVEN BR[employer] 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 Temperature 36.9 C (98.5 F) 01/04/2023 8:14 AM POWER [employer]IVEN BR[employer] MAKER Respiratory Rate 16 01/04/2023 8:14 AM POWER [employer]IVEN BR[employer]KER Oxygen Saturation 98% 01/04/2023 8:14 AM POWER [employer]IV[employer] BR[employer]ER Inhaled Oxygen Concentration - - Weight 127 kg (280 lb) 01/04/2023 8:14 AM POWER [employer]IVEN BRUSH [employer]KER Height - - Body Mass Index - - Plan of Treatment Health Maintenance Due Date Last Done Comments Hepatitis C Virus (HCV) Screening 1981 Hepatitis B Immunization (1 of 3 - 19+ 3-dose series) 01/30/2000 Influenza Immunization (#1) 2024 SARS-COV-2 Immunization ( - 2023- season) 2024 Respiratory Syncytial Virus (RSV) Immunization (Adult) (1 - 1-dose 75+ series) 01/30/2056 DTaP/Tdap/Td Immunization Discontinued 06/19/2016 Meningococcal Immunization (ACWY) Aged Out No longer eligible based on patient's age to complete this topic Pneumococcal Immunization Combined Aged Out No longer eligible b ased on patient's age to complete this topic Rotavirus Immunization Aged Out No lo nger eligible based on patient's age to complete this topic Insurance MEDICAID [place] [facility]
--- OUTSIDE RECORDS SUMMARY | 2025-03-31 09:26 | XMS_ITS | Clinical Summary ---
Author Organization [facility] Address [address] [place] [address] Care Team Providers Care Nursery Manager Name Role Phone Jose Stinson MD Primary Care Provider [phone] Allergies Active Allergy Reactions Criticality Noted Date Comments Penicillins Rash Low 03/10/2025 Medications Nurtec 75 MG tablet dispersible Take 75 mg by mouth 1 (one) time each day if needed 2 Active topiramate (TOPAMAX) 100 MG tablet Take 100 mg by mouth in the morning and 100 mg in the evening. 4 Active metoprolol succinate XL (TOPROL XL) 50 MG 24 hr tablet metoprolol succinate 50 mg tablet extended release 24 hr 2 Active Potassium Citrate ER (Urocit-K 15) 15 MEQ (1620 MG) tablet controlled-relea se Take 30 mEq by mouth in the morning and 30 mEq in the evening. 120 tablet 11 5 03/10/20 26 Active Active Problems No known active problems Encounters Date Type Department Care Team Description 03/19/2025 Documentation Only [facility] [address] [place] [address] Jose Antonio Grande MD 03/10/2025 12:00 PM CDT Office Visit [facility] [address] [place] [address] Jose Antonio Grande MD Chronic kidney disease, stage 2 (mild) (Primary Dx); Nephrolithiasis; Chronic respiratory alkalosis; Distal renal tubular acidosis 02/08/2025 Documentation Only [facility] [address] [place] [address] [address] Jose Antonio Grande MD 2025 11:00 AM CDT Office Visit [facility] [address] [place] [address] Jose Antonio Grande MD Chronic metabolic acidosis (Primary Dx) from Last 3 Months Family History Medical History Relation Comments Allergies Brother Asthma Brother Hypertension Brother Diabetes Father Hypertension Father Irritable bowel syndrome Father Stroke Father Thyroid disease Mother Relation Status Comments Brother Father Mother Social History Tobacco Use Types Packs/Day Years Used Date Smoking Tobacco: Former Cigarettes Smokeless Tobacco: Never Tobacco Cessation:Counseling Given: Not Answered Alcohol Use Standard Drinks/Week Comments Not Currently 0 (1 standard drink = 0.6 oz pur e alcohol) Comments Unknown Sex and Gender Information Value Date Recorded Sex Assigned at Not on file Legal Sex Female 1:48 PM EST Gender Identity Not on file Sexual Orientation Not on file Last Filed Vital Signs Vital Sign Reading Time Taken Comments Blood Pressure 138/82 03/10/2025 12:03 PM CDT Pulse 83 03/10/2025 12:03 PM CDT Temperature 36.3 C (97.4 F) 03/10/2025 12:03 PM CDT Respiratory Rate - - Oxygen Saturation 98% 03/10/2025 12:03 PM CDT Inhaled Oxygen Concentration - - Weight 133 kg (292 lb 8 oz) 03/10/2025 12:03 PM CDT Height 177.8 cm (5' 10) 03/10/2025 12:03 PM CDT Body Mass Index 41.97 03/10/2025 12:03 PM CDT Plan of Treatment Upcoming Encounters Date Type Department Care Team (Late st Contact Info) Description 06/16/2025 10:00 AM CDT Office Visit [facility] [address] [place] [phone] Jose Antonio Grande MD [address] [place] [address] [place] [id number] Health Maintenance Due Date Last Done Comments Hepatitis B Vaccine (1 of 3 - 19+ 3-dose series) 01/29 Pneumococcal Vaccine: Peds ( 0 to 5 Years) and At-Risk Patients (6 to 49 Years) (1 of 2 - PCV) 01/30/2000 Influenza Vaccine (Season Ended) 2025 Insurance Care Teams Nursery Manager Relationship Specialty [place] [id number] [address] PCP - General Internal Medicine 10/30/24
--- OUTSIDE RECORDS SUMMARY | 2025-03-31 09:26 | XMS_ITS | Data Portability ---
Author Organization [facility] Address [address] [place] [address] Care Team Providers Care Bilingual Sales Consultant Name Role Phone DANIELA REDMOND Primary Care Provider Assessment No assessment recorded. Plan of Treatment Reminders Order Date Submit Date Provider Last Modified By Organization Details Last Modified Time Details Appointments None recorded. Lab None recorded. Referral None recorded. Procedures None recorded. Surgeries None recorded. Imaging US, transvagina l 2022 023 [address], [address], [place], [address], 13:29:56 Medication Orders estradiol 2 mg tablet 2022 023 [facility] [address] [facility], [place], [address], 14:53:16 Patient TargetsNo targets recorded. Patient InstructionsNo instructions recorded. Reason for Referral None Reported. Results Created Date Observation Date Name Description Value Unit Range Abnormal Flag Note LastModifiedBy Organization Detail LastModifiedTime 07/17/2007/17/2023 US, luis fernando matthews al No observ ation record ed. [facility] [address], [place], [address], 07/17/2023 13:28:52 07/17/20 23 07/17/2023 US, trans vagin al No observ ation record ed. [email or web address] [address], [place], [address], 07/17/2023 22:02:43 Result Notes None recorded. Procedures Surgical History Date Name Laterality Status Provider Name and Address Organization Details Recorded Time 06/27/20 23 SALPINGECTOMY, LAPAROSCOPIC (SURG) completed Amairani Padilla [facility] 06/28/2023 11:16:34 04/19/20 23 Endometrial Biopsy completed Aubrie Duong [facility]- [address], [place], [address], [facility] 04/19/2023 17:58:40 03/29/20 23 Date of Last [facility]/29[facility]2023 14:27:25 09/05/20 21 Kidney endoscopy completed [facility] 04/10/2023 12:22:55 09/05/20 21 Kidney end[facility] & [facility] 04/10/2023 12:24:49 09/05/20 21 Kidney endoscopy & treatment [facility] 04/10/2023 12:26:40 11/05/19 09 Colposcopy completed [facility] 03/29/2023 14:28:35 11/05/19 09 LEEP completed [facility] 04/10/2023 12:25:13 11/05/19 09 Colposcopy completed [facility] 04/10/2023 12:25:22 11/05/18 97 extraction of wisdom tooth [facility] 04/10/2023 12:26:08 11/05/18 90 procedure on finger completed [facility] 04/10/2023 12:25:59 Imaging Results None recorded. Procedure Notes None recorded. Medical Equipment None Reported. Allergies Allergen ID Allergen Name Allergen Category Reaction Reaction Severity Criticality Documentation Date Start Date Code Code System Note Provider Name and Address Organization Details Recorded Time Product containin g penicilli n (product) medicatio n Not available Not available Not available 03/29/2023 46783 [id number] SNOMED Sarita Hayes [facility] 3 14:26:36 Medications Name Sig Start Date Stop Date Status Note LastModified by Organization Details LastModified Time atorvastati n 40 mg tablet TAKE 1 TABLET BY MOUTH AT BEDTIME 04/19 completed Not Available Not Available Not Available promethazin e-DM 6.25 mg-15 mg/5 mL oral syrup TAKE 5 ML BY MOUTH EVERY 4 HOURS NEEDED FOR COUGH 04/19 completed Not Available Not Available Not Available azithromyci n 250 mg tablet TAKE 2 TABLETS BY MOUTH ON DAY 1, AND THEN TAKE 1 TABLET BY MOUTH ONCE A DAY ON DAY 2 THROUGH DAY 5 04/19 completed Not Available Not Available Not Available hydrocodone 5 mg-acetamin ophen 325 mg tablet TAKE 1 TABLET BY MOUTH EVERY 6 HOURS NEEDED FOR PAIN 06/21 completed Not Available Not Available Not Available metoprolol succinate ER 100 mg tablet,exte nded release 24 hr TAKE 1 TABLET BY MOUTH ONCE DAILY. APPOINTME NT REQUIRED FOR FUTURE REFILLS active Not Available Not Available No t Available oxycodone-a cetaminophe n 5 mg-325 mg tablet active Not Available Not Available No t Available tamsulosin 0.4 mg capsule TAKE 1 CAPSULE BY MOUTH ONCE DAILY active Not Available Not Available No t Available estradiol 2 mg tablet Take 1 tablet by mouth once daily 2022 active Not Available Not Available Not Avai lable methylpredn isolone 4 mg tablets in a dose pack TAKE BY MOUTH DIRECTED ON INSIDE OF PACKAGE 04/19 completed Not Available Not Available Not Available topiramate 100 mg tablet TAKE 1 TABLET BY MOUTH TWICE DAILY active Not Available Not Available No t Available topiramate 04/19 completed Not Available Not Available Not Available Ubrelvy 50 mg tablet TAKE 1 TABLET BY MOUTH DIRECTED - MAY REPEAT DOSE ONCE AFTER 2 HOURS IF NEEDED active Not Available Not Available No t Available [facility] ODT 75 mg disintegrat ing tablet PLACE 1 TABLET ON TOP OF TONGUE, ALLOW TO DISSOLVE THEN SWALLOW ONCE NEEDED FOR MIGRAINE; MAX 1 DOSE PER 24 HOURS active Not Available Not Available No [facility]19 completed Not Available Not Available Not Available Vitals Date Recorded Body height Body mass index (BMI) Body weight Systolic And Diastolic Provider Name and Address Organization Details Last Updated DateTime 07/11/2023 175.26 cm 41.9 kg/m2 404311.23 g 117/83 mm[Hg] [facility] 07/11/2023 14:34:08 Date Recorded Body height Body mass index (BMI) Body weight Systolic And Diastolic Provider Name and Address Organization Details Last Updated DateTime 07/21/2023 175.26 cm 41.9 kg/m2 727370.23 g 115/81 mm[Hg] [facility] 07/21/2023 11:45:11 Date Recorded Body height Body mass index (BMI) Body weight Systolic And Diastolic Provider Name and Address Organization Details Last Updated DateTime 08/02/2023 175.26 cm 41.9 kg/m2 073019.23 g 116/79 mm[Hg] [facility] 08/02/2023 16:20:37 Social History Question Answer Notes LastModified by Organizat ion Details LastModified Time Tobacco Smoking Status Former Smoker Sarita hernandez, [facility] 04/10/2023 12:20:09 Are You Blind Or Do You Have Difficulty Seeing? No [email or web address] Information n ot available 04/10/2023 What Is Your Level Of Caffeine Consumption? Moderate [email or web address] Information not available 04/10/2023 In The 14 Days Before Symptom Onset, Have You Had Close Contact With A Laboratory-confirm ed COVID-19 While That Case Was Ill? No [email or web address] Information n ot available 04/10/2023 In The 14 Days Before Symptom Onset, Have You Had Close Contact With A Person Who Is Under Investigation For COVID-19 While That Person Was Ill? No [email or web address] Information not available 04/10/2023 Have You Been To An Area Known To Be High Risk For COVID-19? No Information not available 04/10/2023 Are You Deaf Or Do You Have Serious Difficulty Hearing? No [email or web address] Information not available 04/10/2023 What Type Of Diet Are You Following? REGULAR [email or web address] Information n ot available 04/10/2023 Have You Ever Been Counseled For Unhealthy Alcohol Use? No Information not available 04/10/2023 Do You Use Your Seat Belt Or Car Seat Routinely? Yes [email or web address] Information not available 04/10/2023 Do You Have Smoke And Carbon Monoxide Detectors In Your Home? Yes [email or web address] Information not available 04/10/2023 Do You Use Sunscreen Routinely? Yes [email or web address] Information not available 04/10/2023 Has Tobacco Cessation Counseling Been Provided? No [email or web address] Information not available 04/10/2023 Do You Have Difficulty Walking Or Climbing Stairs? No [email or web address] Information not available 04/10/2023 Sex: Unknown Functional Status Question Answer Note LastModified by Organizat ion Details LastModified Time Do you use any illicit or recreational drugs? No [email or web address] Information not available 04/10/2023 Do you or have you ever used any other forms of tobacco or nicotine? Yes [email or web address] Information not available 04/10/2023 What is your level of alcohol consumption? Occasional Information not available 04/10/2023 Are you able to walk? YESWOREST [email or web address] Information not available 04/10/2023 Are you able to care for yourself? Yes [email or web address] Information not available 04/10/2023 Do you have difficulty dressing or bathing? No [email or web address] Information not available 04/10/2023 Do you or have you ever used e-cigarettes or vape? Former user of electronic cigarettes [email or web address] Information not available 04/10/2023 What is your exercise level? Occasional [email or web address] Information not available 04/10/2023 Mental Status Question Answer Note LastModified by Organization D etails LastModified Time Do you feel stressed (tense, restless, nervous, or anxious, or unable to sleep at night)? [id number] [email or web address] Information not available 04/10/2023 Family History Relationship Description Onset Age of this Age Resolved Age Notes LastModified by Organization Details LastModified Time Paternal Grandmother Malignant tumor of breast [email or web address] Not available 04/10 12:13:53 Paternal Grandfather Heart disease [email or web address] Not available 04/10 12:14:21 Paternal Grandfather Hypertensive disorder [email or web address] Not available 04/10 12:18:38 Mother Diabetes mellitus [email or web address] Not available 04/10 12:14:39 Mother Cyst of ovary [email or web address] Not available 04/10 12:19:05 Mother Disorder of thyroid gland [email or web address] Not available 04/10 12:19:23 Maternal Grandfather Diabetes mellitus [email or web address] Not available 04/10 12:14:39 Father Hypercholest erolemia [email or web address] Not available 04/10 12:18:14 Father Hypertensive disorder [email or web address] Not available 04/10 12:18:38 Brother Hypertensive disorder [email or web address] Not available 04/10 12:18:38 Brother Hypercholest erolemia [email or web address] Not available 04/10 12:18:44 Maternal Aunt Disorder of thyroid gland [email or web address] Not available 04/10 12:19:24 Medical History Condition Response Allergies (Food, seasonal, environmental ) N Other N Breast Cancer N Drug/Latex Allergies/Reactions Y Blood Transfusion N Dermatologic Disorders N Lung Disease N Defects or Inherited Disease N Breast Problem N Gestational Diabetes N Hematologic disorders N Anesthesia Complications N History of STI Y Deep Vein Thrombosis N Polycystic ovary syndrome N Anxiety Disorder N Autoimmune disease N Arthritis N Infertility N Polyps N Acid Reflux (GERD) N History of abnormal pap Y Cancer N Stroke N Varicosities N Neurologic/Epilepsy N Endometriosis N High Cholesterol Y Headaches Y Fibromyalgia N Kidney Disease N Heart Problems N Kidney or Bladder Problems Y Thyroid Problems N GI Problems N Eating Disorder N Anemia N Art (IVF or FET) N Psychiatric Illness N Ovarian Cancer N Diabetes N Pulmonary (TB, Asthma) N Hepatitis/Liver Disease N No Past Medical History N Eczema N Urinary Tract Infection N Abuse/Domestic Violence N Asthma N Trauma/Violence N Depression/ depression N Heart Disease N Pre-Eclampsia N Hypertension Y Osteoporosis N Thrombophilias N Gynecological History Statement/Question Response Abnormal Pap Y Date of Last Mammogram Date of LMP 04/13/2023 Was last menstrual period normal Y STIs/STDs Yes HPV Vaccine N Colposcopy 11/05/2008 Current Control Method Sterilizati on Are cycles usually normal Y Date of Last Colonoscopy Most Recent Bone Density Sexually Active? N Menses Monthly Y Date of Last Pap Smear 03/29/2023 Sexual Problems? N LMP Approximate Obstetrics History GPAL:G 1 P 0 1 0 1 Type Value Premature 1 Living 1 Total 1 Past Encounters Encounter ID Performer Location Encounter Start Date Encounter Closed Date Diagnosis/Indication Diagnosis SNOMED-CT Code Diagnosis ICD10 Code Diagnosis Note [id number] Aubrie Duong , [facility] [address] [address] 03/29/2023 14:04:57 03/29/2023 14:56:15 Gynecologic examination 01903763 Z01.419 Suggested Calcium with Vitamin D 1200-1500m g daily. Patient advised to get an annual flu shot in the fall and she could obtain at [facility] or [facility]. Also to obtain TDap vaccinatio n if you have not had one in the last 10 years. Recommend yearly mammograms . Encouraged monthly self breast exams. Encourage safe sexual practices, to use condoms and limit partners if not already in a monogamous relationsh ip. Engage in daily exercise of low impact aerobic exercise 45-60 minutes 4-5 times weekly. Avoid tobacco and illicit drugs as well as using moderation with alcohol intake less than 1-2 8 oz beverages daily. This lifestyle behavior pattern will lead to less health conditions and longer life span. If BMI greater than 25 weight watchers or dietary consult advised. All questions have been answered. Patient appears to understand informatio n, but if you have any questions please call or respond to this email.Pap/ hpv sentSTD Screen declinedGe netic Screen discussedC olon Screen naDexa Screen naRoutine Labs PCPMammo ordered Perimenopausal state 103 [id number] 53010 Z78.0 Update labs Irregular periods 055268 07 N92.6 Hx of irregular cycles/Hir sutism/dif ficulty losing weightQues tionable PCOS Screening mammography 24 776625 Z12.31 External hemorrhoids 239 73252 K64.4 Refer to GI to discuss ext hemorrhoid s [id number] Vlad Sanchez MD [facility] [address] [address] 04/05/2023 13:54:59 04/05/2023 14:37:07 Irregular periods 20725851 N92.6 [id number] Aubrie Duong [facility] [address] [address] 04/19/2023 17:24:58 04/19/2023 18:00:38 Screening procedure 93579320 Z13.9 Abnormal u terine bleeding 0169516551 9100 N93.9 Here today for EMBx & lab work for menorrhagi a/AUB.Revi ewed US.We agreed on MD consult with Dr. Sanchez to further discuss recommenda tions that might also include surgical.( see procedure notes). [id number] Vlad Sanchez MD [facility] [address] [address] 05/17/2023 15:13:04 05/17/2023 16:36:54 Menorrhagia 728394751 N92.0 This patient is a 43-year-ol d female presents for heavy vaginal bleeding. She has longstandi ng very heavy bleeding. Her menses are regular. However, they require double protection . Patient has accidents, getting blood on her bedding and clothing. Is affected work. She changes a pad or tampon every hour. She leaks blood around the pad and tampon. This bleeding has a profound impact on her quality of life and her activities of daily living. discussed treatment options in detail. Talked about medical and surgical treatment options as well as procedures that would treat bleeding. Talked about endometria l ablation in detail. We reviewed the animated video of endometria l ablation. Talked about success rates. Talked about the presence of uterine fibroids and there was against. I feel they have significan ce in her situation because they are on the periphery of the uterus. Spent over 40 minutes face-to-fa ce. Made a decision to perform surgery. More than 50% of our time was counseling . she is going to contact us and she will likely want to schedule laparoscop ic bilateral salpingect janna and endometria l ablation with hysterosco py at the hospital. [id number] Vlad Sanchez MD [facility] [address] [address] 06/21/2023 14:13:13 06/21/2023 15:01:38 Menorrhagia 138974785 N92.0 This patient is a 43-year-ol d female with severe menorrhagi a and unwanted fertility. We agreed to perform laparoscop ic bilateral salpingect janna and endometria l ablation with hysterosco py. She understand s risks, benefits, and alternativ es. She has completed informed consent process and is ready to proceed. [id number] Vlad Sanchez MD [facility] [address],[place] [address] 06/28/2023 10:54:13 06/28/2023 10:58:20 [id number] Vlad Sanchez MD [facility] [address] [address] 07/11/2023 14:17:43 07/11/2023 15:08:47 Abnormal uterine bleeding 1822622043 9100 N93.9 43-year-ol d female who presents for follow-up on abnormal uterine bleeding. She had endometria l ablation a couple of weeks ago. She continues to bleed. About solutions, talked about reasons, we talked about evaluation . We agreed to further evaluation with ultrasound . She will be treated with estradiol -2 mg daily for 3 weeks. She will return in about 1 week. [id number] Vlad Sanchez MD [facility] [address] [address] 07/17/2023 12:33:57 07/17/2023 13:29:56 Abnormal uterine bleeding 3439356753 9100 N93.9 43-year-ol d female who presents for follow-up on abnormal uterine bleeding. She had endometria l ablation a couple of weeks ago. She continues to bleed. About solutions, talked about reasons, we talked about evaluation . We agreed to further evaluation with ultrasound . She will be treated with estradiol -2 mg daily for 3 weeks. She will return in about 1 week. [id number] Vlad Sanchez MD [facility] [address] [address] 07/21/2023 11:31:28 07/21/2023 12:21:30 Abnormal uterine bleeding 8190645394 9100 N93.9 This patient is a 43 year female presents follow-up ultrasound . She has had an endometria l ablation about 3 weeks ago. She has copious discharge. The discharge persists. There was some blood, old blood, serous material. It is concerning to the patient. The ultrasound is normal. We have been treating with estrogen. She will follow-up in 2 weeks. Will continue to observe. She was given precaution s. Spent 20 minutes face-to-fa ce. More than 50% was counseling . [id number] Vlad Sanchez MD [facility] [address] [address] 08/02/2023 16:02:45 08/02/2023 16:54:09 Menorrhagia 663097257 N92.0 43-year-ol d female presents for follow-up endometria l ablation. She has had continue discharge after the ablation. Is 5 weeks post ablation. discharge is improved finally. She has had some bright red bleeding, this was like, likely healing. We will continue to observe. She will follow-up as needed. She seems to be improving overall. Health Concerns Section Related Observation LastModified by Organization Detai ls LastModified Time None Recorded Concern Status LastModified by Organization Details LastModified Time None Recorded Advance Directives Directive None Recorded Payers Encounter Date Sequence Insurance Name Policy Number Policy Escobedo Covered Member ID Escobedo Member ID Guarantor Name 06/27/2023 1 [id number] Abbey E Pedraza [id number] 06/27/2023 2 [place] [employer] Abbey E Pedraza [id number] 07/11/2023 1 UMR [id number] Abbey E Pedraza [id number] 07/11/2023 2 [place] [facility] Abbey E Pedraza [id number] 07/17/2023 1 [id number] Abbey Pedraza [id number] 07/17/2023 2 [place] [facility] Abbey Pedraza [id number] 07/21/2023 1 [id number] Abbey Pedraza [id number] 07/21/2023 2 [place] [facility] Abbey Pedraza [id number] 08/02/2023 1 [facility] [id number] Abbey Pedraza [id number] 08/02/2023 2 [place] [facility] Abbey Pedraza [id number] Notes Date Note Type Note Provider Name and Address Organization Details Recorded Time 07/11/2023 text/html 43-year-old female who presents for follow-up on abnormal uterine bleeding. She had endometrial ablation a couple of weeks ago. She continues to bleed. About solutions, talked about reasons, we talked about evaluation. We agreed to further evaluation with ultrasound. She will be treated with estradiol -2 mg daily for 3 weeks. She will return in about 1 week. Vlad Sanchez MD [address], [place], [address], [facility] 07/11/2023 15:05:03 07/21/2023 text/html This patient is a 43 year female presents follow-up ultrasound. She has had an endometrial ablation about 3 weeks ago. She has copious discharge. The discharge persists. There was some blood, old blood, serous material. It is concerning to the patient. The ultrasound is normal. We have been treating with estrogen. She will follow-up in 2 weeks. Will continue to observe. She was given precautions. Spent 20 minutes [id number]. More than 50% was counseling. Vlad Sanchez MD [address], [place], [address], [facility] 07/21/2023 12:16:22 08/02/2023 text/html 43-year-old female presents for follow-up endometrial ablation. She has had continue discharge after the ablation. Is 5 weeks post ablation. discharge is improved finally. She has had some bright red bleeding, this was like, likely healing. We will continue to observe. She will follow-up as needed. She seems to be improving overall. Vlad Sanchez MD [address], [place], [address], [facility] 08/02/2023 16:52:53 OBGyn Episode Ob Episode Information Episode Created Date Number of Fetuses Patient Bloodtype Patient rh Status Prepregnancy Weight lbs Domestic Partner Domestic Partner Phone Father Name Loading Unit Operator Seating Status 03/29/20 23 1 CLOSED Fetus Data First Name Last Name Admitted to NICU Weight (g) Sex Living Outcome Pediatric Complications Fetus ID Race Codes Race Delivery Type 2211.26 1 F Prematur e Vaginal Delivery Gorge Calculation Initial Gorge Date Initial Exam Date Initial Exam Provider Initial Ultrasound Date Last Menstrual Period Date Ultra Sound Weeks Gestation 0 Eighteen To Twenty Week Gorge Update Ultra Sound Date Fundal Height At Umbil Quickening Date Ultra Sound Latest Weeks Gestation Final Gorge Confirmed By Final Gorge Confirmed Date Final Gorge Date Ultra Sound Latest Days Gestation 0 0 Menstrual History Last Menstrual Date Menses Monthly On Bcp Conception Prior Menses Frequency Hcg Plus Date Menarche Onset Age Delivery Information Delivery Date Delivery Type Labor Anesthesia Weeks Gestation Incision Type Labor Labor Length Hrs Delivered By Post Complications Tubal Sterilization Discharge Date Comments 5 35 true Discharge Information Feeding Method Contraceptive Method Maternal HG B and HCT Levels
--- OUTSIDE RECORDS SUMMARY | 2025-03-31 09:26 | XMS_ITS | CONTINUITY OF CARE DOCUMENT ---
Author Name austin, austin Address Unknown Organization [facility] Address [address] [place] [address] Phone [phone] Care Team Providers Care Scale Technician Name Role Phone Anel ORTIZ, Richi Alexander Unavailable [phone] Desiree FIRE BATTALION CHIEF, Treasure Unavailable [phone] Desiree FIRE BATTALION CHIEF, Treasure Unavailable [phone] PROBLEMS Condition Status Date Provider Notes HTN- 01/14 ECHO EF 60-04/13 EC HO EF 65 active ? Jose Sol RN CHEST PAIN-04/13 RT STRESS ISCHEMIA completed - Richi Tam MD CHEST PAIN-04/13 NUC SM. REV INF AP DIAPH. ATT. completed - Richi Tam MD EDEMA completed - Richi Tam MD Family History of Hypertension: completed - Richi Tam MD Family History of Hypertension: completed - Richi Tam MD Cardiology examination active Alicia Nallu ri FIRE BATTALION CHIEF Fatigue active Alicia Nalluri FIRE BATTALION CHIEF Hyperlipidemia active Alicia Nalluri FIRE BATTALION CHIEF Family hx of coronary heart disease (CAD) active Alvarado Patterson ENCOUNTERS Date Type Provider Location Encounter Diag nosis - In-person encounter Office Visit Richi Tam MD [place] [facility] - In-person encounter Office Visit Richi Tam MD [place] [facility] - In-person encounter Office Visit Richi Tam MD [facility] Cardiology examinationFatigueHyperlipidemiaFamily hx of coronary heart disease (CAD) - In-person encounter Office Visit Richi Tam MD [place] [facility] CHEST PAIN-04/13 NUC SM. REV INF AP DIAPH . ATT.EDEMA - In-person encounter Office Visit Richi Tam MD [place] [facility] CHEST PAIN-04/13 RT STRESS ISCHEMIAFamily History of Hypertension:Family History of Hypertension: - In-person encounter Office Visit Ricih Tam MD [place] [facility] - In-person encounter Office Visit Richi Tam MD [place] - In-person encounter Office Visit Richi Tam MD [facility] - In-person encounter Office Visit Richi Tam MD [facility] [facility] - In-person encounter Office Visit Richi Tam MD [facility] - In-person encounter Office Visit Richi Tam MD [facility] - In-person encounter Office Visit Richi Tam MD [facility] - In-person encounter Office Visit Richi Tam MD [facility] - In-person encounter Office Visit Israel Holliday MD [facility] HTN- 01/14 ECHO EF 60-04/13 ECHO EF 65 - In-person encounter Office Visit Israel Holliday MD [facility] [facility] VITAL SIGNS Date Observation Value Provider Body Mass Index (Ratio) 42.18 kg/m2 Sydni Singh blood pressure, diastolic 88 mm[Hg] Sintia Hernandez blood pressure, systolic 132 mm[Hg] Zelda Hernandez pulse rate 72 /min Juhi Hernandez blood pressure, cuff size large An yuko Hernandez oxygen saturation, oximetry 98 % Juhi David weight E&M 294 [lb_av] Juhi David height E&M 70 [in_i] Juhi David Body Mass Index (Ratio) 42.04 kg/m2 Reji Jama blood pressure, diastolic 92 mm[Hg] Corin nkLogic blood pressure, systolic 112 mm[Hg] Cathie kLog blood pressure, diastolic 92 mm[Hg] [facility] blood pressure, systolic 112 mm[Hg] [facility] pulse rate 60 /min Eugenia [place] oxygen saturation, oximetry 98 % [facility] respiratory rate E&M 14 /min Eugenia Alexander adrian weight E&M 293 [lb_av] Eugenia [place] height E&M 70 [in_i] Eugenia [place] Body Mass Index (Ratio) 42.47 kg/m2 Mitch Patterson respiratory rate E&M 16 /min Sendy Butt blood pressure, diastolic 84 mm[Hg] Zandra Butt blood pressure, systolic 123 mm[Hg] Barreto jovanny Butt oxygen saturation, oximetry 97 % Sendy Butt pulse rate 77 /min Sendy Butt weight E&M 296 [lb_av] Sendy Butt height E&M 70 [in_i] Sendy Butt Body Mass Index (Ratio) 36.01 kg/m2 Watson Akers blood pressure, cuff size regular Cy chava Aranda blood pressure, diastolic 80 mm[Hg] Cy nthiabhinav Aranda blood pressure, systolic 130 mm[Hg] Katie bebe Aranda oxygen saturation, oximetry 99 % Carol Aranda respiratory rate E&M 16 /min Carol Aranda pulse rate 93 /min Carol carney weight E&M 251 [lb_av] Carol carney height E&M 70 [in_i] Carol carney blood pressure, resting Yes Watson Akers Body Mass Index (Ratio) 34.86 kg/m2 Watson Akers blood pressure, cuff size regular Cy chava Aranda blood pressure, diastolic 76 mm[Hg] Yinka Aranda blood pressure, systolic 132 mm[Hg] Katie Aranda oxygen saturation, oximetry 98 % Carol Aranda respiratory rate E&M 16 /min Carol Aranda pulse rate 62 /min Carol carney weight E&M 243 [lb_av] Carol carney height E&M 70 [in_i] Carol carney pulse rate, standing 89 /min Shanae Blankenship blood pressure, diastolic, standing 80 mm [Hg] Nguyen Blankenship blood pressure, systolic, standing 136 mm [Hg] Nguyen Blankenship pulse rate, sitting 72 /min Angela Blankenship blood pressure, diastolic, sitting 60 mm[ Hg] Nguyen Blankenship blood pressure, systolic, sitting 118 mm[ Hg] Nguyen Blankenship pulse rate, supine, right 69 /min Jaqueline Blankenship blood pressure, lamb tolic, supine, right arm 60 Nguyen Blankenship blood pressure, syst olic, supine, r arm 114 Nguyen Blankenship blood pressure, diastolic 96 mm[Hg] Jaqueline Blankenship blood pressure, systolic 142 mm[Hg] Lindsey Blankenship Body Mass Index (Ratio) 41.46 kg/m2 Nilsa Blankenship pulse rate 63 /min Nguyen lloyd oxygen saturation, oximetry 97 % Nguyen Blankenship respiratory rate E&M 18 /min Shanae costa Blankenship weight E&M 289 [lb_av] Nguyen lloyd Body Mass Index (Ratio) 35.72 kg/m2 Anea violet Brown blood pressure, diastolic 79 mm[Hg] An eatris Brown blood pressure, systolic 129 mm[Hg] Ane atris Brown pulse rate 67 /min Aneatris Brown oxygen saturation, oximetry 98 % Aneatris Brown respiratory rate E&M 17 /min Aneatri s Brown weight E&M 249 [lb_av] Rosemaryatris Brown Body Mass Index (Ratio) 380.05 kg/m2 Sanjay Schumacher blood pressure, diastolic 88 mm[Hg] Nuñez blood pressure, systolic 130 mm[Hg] Lalo Schmuacher pulse rate 64 /min Kirsten Schumacher oxygen saturation, oximetry 98 % Kirsten Schumacher respiratory rate E&M 16 /min Kirsten Schumacher weight E&M 2639.19 [lb_av] Kirsten petty blood pressure, diastolic, left arm 86 mm [Hg] Jose Sol RN blood pressure, systolic, left arm 118 mm [Hg] Jose Sol RN blood pressure, diastolic, right arm 86 m m[Hg] Jose Sol RN blood pressure, systolic, right arm 128 m m[Hg] Jose Sol RN blood pressure, diastolic 86 mm[Hg] Shady Sol RN blood pressure, systolic 128 mm[Hg] Jose Sol RN pulse rate 72 /min Jose Sol RN oxygen saturation, oximetry 98 % Jose Sol RN respiratory rate E&M 16 /min Jose vasquez RN weight E&M 278 [lb_av] Jose Sol RN height E&M 70 [in_i] JULIETA JOSEPHIC K FIRE BATTALION CHIEF blood pressure, diastolic, left arm 80 mm [Hg] JULIETA JOSEPHICK FIRE BATTALION CHIEF blood pressure, systolic, left arm 140 mm [Hg] JULIETA JOSEPHICK FIRE BATTALION CHIEF blood pressure, diastolic, right arm 98 m m[Hg] Flako Luis blood pressure, systolic, right arm 152 m m[Hg] Flako Luis blood pressure, diastolic 98 mm[Hg] Carlos conde Luis blood pressure, systolic 152 mm[Hg] Constance jack Luis pulse rate 75 /min Flako Smith oxygen saturation, oximetry 99 % Flako Smith respiratory rate E&M 16 /min Flako Smith weight E&M 278 [lb_av] Constanceabramabhinav Smith blood pressure, diastolic 80 mm[Hg] Shady Sol RN blood pressure, systolic 118 mm[Hg] Jose Sol RN pulse rate 76 /min Jose Sol RN oxygen saturation, oximetry 98 % Jose Sol RN respiratory rate E&M 18 /min Jose vasquez RN weight E&M 248 [lb_av] Jose Sol RN blood pressure, diastolic, left arm 88 mm [Hg] Rojelio Manacop blood pressure, systolic, left arm 129 mm [Hg] Rojelio [place] blood pressure, diastolic, right arm 85 m m[Hg] Rojelio [place] blood pressure, systolic, right arm 130 m m[Hg] Rojelio [place] blood pressure, diastolic 85 mm[Hg] Kalyani arvizu [place] blood pressure, systolic 130 mm[Hg] Raul estrada [place] pulse rate 58 /min Rojelio [place] oxygen saturation, oximetry 99 % Rojelio [place]op respiratory rate E&M 16 /min Rojelio Man[place]op weight E&M 252 [lb_av] Rojelio Cheung blood pressure, diastolic, left arm 79 mm [Hg] Jose Sol RN blood pressure, systolic, left arm 118 mm [Hg] Jose Sol RN blood pressure, diastolic, right arm 76 m m[Hg] Jsoe Sol RN blood pressure, systolic, right arm 119 m m[Hg] Jose Sol RN blood pressure, diastolic 79 mm[Hg] Shady Sol RN blood pressure, systolic 118 mm[Hg] Jose Sol RN pulse rate 75 /min Jose Sol RN oxygen saturation, oximetry 98 % Jose Sol RN respiratory rate E&M 16 /min Jose vasquez RN weight E&M 236 [lb_av] Jose Sol RN blood pressure, diastolic 97 mm[Hg] Shady Sol RN blood pressure, systolic 148 mm[Hg] Jose Sol RN pulse rate 83 /min Carmina Crooks oxygen saturation, oximetry 98 % Carmina Crooks respiratory rate E&M 16 /min Carmina stroud weight E&M 236 [lb_av] Carmina Crooks blood pressure, diastolic 84 mm[Hg] Raúl Farah blood pressure, systolic 122 mm[Hg] Ford Farah blood pressure, diastolic 104 mm[Hg] Shady Sol RN blood pressure, systolic 152 mm[Hg] Jose Sol RN pulse rate 89 /min Jose Sol RN oxygen saturation, oximetry 95 % Jose Sol RN respiratory rate E&M 16 /min Jose vasquez RN weight E&M 236 [lb_av] Jose Sol RN RESULTS Date Observation Value Provider Reference Range Interpretation Location 8 thyroid stimulating hormone, serum 2.7 u[IU]/mL [facility] blood glucose, fasting 117 mg/dL [facility] creatinine, serum 0.7 mg/dL [facility] urea nitrogen, blood 12 mg/dL [facility] carbon dioxide, serum, total 21 mmol/L [facility] [place] chloride, serum 103 mmol/L [place] [facility] potassium, serum 4.5 mmol/L [facility] [place] [facility] sodium, serum 141 mmol/L [facility] [place] 8 platelet count 338 10*3/uL [facility] [place] 8 hematocrit, blood 40.7 % [facility] hemoglobin, blood 13.6 g/dL [facility] 8 leukocyte count, blood 12.1 10*3/mm3 [facility] [place] HISTORY OF MEDICATION USE Medication Status Instructions Dates Provider Indications Com ments metoprolol succinate 50 mg tablet extended release 24 hr active TAKE 1 TABLET BY MOUTH ONCE DAILY . APPOINTMENT REQUIRED FOR FUTURE REFILLS 01/20 Tarsha Adamehidanielito hydrochlorothiazide 25 mg tablet active Take 1 tablet by mouth once a day 02/19 Richi Tam MD amlodipine 10 mg tablet completed TAKE 1 TABLET BY MOUTH ONCE DAILY 01/13 - 02/19 Richi Tam MD metoprolol succinate 50 mg tablet extended release 24 hr completed TAKE 1 TABLET BY MOUTH ONCE DAILY. APPOINTMENT REQUIRED FOR FUTURE REFILLS. - 01/20 Tarsha Menendez atorvastatin 40 mg tablet completed Take 1 tablet by mouth at bedtime - 01/13 Eugenia Quintana metoprolol succinate 100 mg tablet extended release 24 hr completed Take 1 tablet by mouth once a day Take 1 tablet by mouth once daily 06/05 - Cass Montero metoprolol succinate 100 mg tablet extended release 24 hr completed TAKE 1 TABLET BY MOUTH ONCE DAILY . APPOINTMENT REQUIRED FOR FUTURE REFILLS. 05/27 - 06/05 Gris Norton Topamax 50 mg tablet active Take 1 tabl et by mouth once a day 11/23 Carol Aranda HYDRALAZINE HCL 25 MG ORAL TABLET completed 1 tab daily as needed 05/12 - 05/24 Aneatralban Jolley HYDROCHLOROTHIAZIDE 25 MG ORAL TABLET completed ONE TAB DAILY 01/22 - 05/24 Aneatralban Jolley metoprolol succinate 100 mg tablet extended release 24 hr completed Take 1 tablet by mouth once a day 03/04 - 05/27 Chuckie Tenorio BYSTOLIC 10 MG ORAL TABLET completed po once daily 05/05 - 05/21 Kyung Jean RN JOSEGUNTTE TABLET completed as directed - 05/12 Kirsten Schumacher SOCIAL HISTORY Date Observation Value Provider alcohol use no Richi Tam MD passive cigarette sm bj exposure no Richi Tam MD smoking status Never smoker Richi Raygoza alcohol use no Eugenia Quintana passive cigarette sm bj exposure no Eugenia Quintana smoking status Never smoker Eugenia Quintana social history reviewed E&M revi ewed - no changes required Alicia Weinstein NP social history reviewed E&M revi ewed - no changes required Richi Tam MD physical exercise, frequency, days per week no Carol Aranda caffeine use, averag e drinks per day 0 /d Carol Aranda passive cigarette sm bj exposure no Carol Aranda smoking status Never smoker Carol mantilla social history reviewed E&M revi ewed - no changes required Amadou Akers social history E&M Marital Statu s: Single L willy with family/friends E thnicity: Smoking History: P atient has never smoked. Amadou Akers physical exercise, frequency, days per week no Carol Aranda alcohol use, average drinks per day none Carol Aranda alcohol use no Carol carney caffeine use, averag e drinks per day 0 /d Amadou Akers passive cigarette sm bj exposure no Carol Aranda smoking status Never smoker Carol Mcdonough annalee social history E&M Marital Statu s: Single L willy with family/friends E thnicity: Smoking History: Adonay desai has never smoked. Richi Tam MD social history reviewed E&M revi ewed - no changes required Richi Tam MD physical exercise, frequency, days per week no Nguyen Blankenship alcohol use, average drinks per day none Nguyen Blankenship caffeine use, averag e drinks per day no Nguyen Blankenship passive cigarette sm bj exposure no Nguyen Blankenship smoking status Never smoker Nguyen Juan Antnoio martino physical exercise, frequency, days per week no Richi Tam MD alcohol use, average drinks per day none Richi Tam MD caffeine use, averag e drinks per day no Richi Tam MD passive cigarette sm bj exposure no Richi Tam MD smoking status Never smoker Richi Raygoza social history reviewed E&M revi ewed - no changes required Richi Tam MD social history reviewed E&M reviewed Jose Sol RN passive cigarette sm bj exposure no Kirsten Schumacher smoking status never smoker Jose Sol RN social history reviewed E&M reviewed Jose Sol RN social history reviewed E&M reviewed JULIETA LIMA NP social history reviewed E&M reviewed Jose Sol RN social history reviewed E&M reviewed Jose Sol RN social history reviewed E&M reviewed Jose Sol RN social history reviewed E&M reviewed Jose Sol RN social history E&M Marital Statu s: Single L willy with family/friends E thnicity: Jose Sol RN social history reviewed E&M reviewed Jose Sol RN physical exercise, frequency, days per week no LinkLogic caffeine use, averag e drinks per day no LinkLogic alcohol use, average drinks per day none LinkLogic smoking status Non-smoker [facility] FUNCTIONAL STATUS Date Observation Value Provider periodic limb movement index absent (0) Jay Farah MENTAL STATUS Date Observation Value Provider assessment of judgme nt and insight E&M Alert and oriented to time, place and person. Mood and affect are normal. Jose Sol RN assessment of judgme nt and insight E&M Alert and oriented to time, place and person. Mood and affect are normal. Jose Sol RN assessment of judgme nt and insight E&M Alert and oriented to time, place and person. Mood and affect are normal. JULIETA LIMA NP assessment of judgme nt and insight E&M Alert and oriented to time, place and person. Mood and affect are normal. Jose Sol RN assessment of judgme nt and insight E&M Alert and oriented to time, place and person. Mood and affect are normal. Jose Sol RN assessment of judgme nt and insight E&M Alert and oriented to time, place and person. Mood and affect are normal. Jose Sol RN assessment of judgme nt and insight E&M Alert and oriented to time, place and person. Mood and affect are normal. Jose Sol RN assessment of judgme nt and insight E&M Alert and oriented to time, place and person. Mood and affect are normal. Jose Sol RN FAMILY HISTORY Family Member Condition Father Family History of Hy pertension: Mother Family History of Hy pertension: INSURANCE PROVIDERS Payer name Policy type / Coverage type [place] red green party ID [facility] Commercial insurance co [facility] [id number] HE[employer] AND FAMILY SERVICES Medicaid 1 [id number] ADVANCE DIRECTIVES Name Date DISCUSSED - NO DECISION MADE TREATMENT PLAN Date Name Performer [id number],S, She checks her BP at home on occasion, well controlled. B P today: 123/84 P rior BP: 130/80 (11/24/2019) Her updated medication list for this problem includes: Metoprolol Succinate 100 Mg Tablet Extended Release 24 Hr (Metoprolol succinate) ..... Take 1 tablet by mouth once a day take 1 tablet by mouth once daily Alvarado Patterson [id number],W,L ast lipid panel showed total cholesterol 201, trigs 197, and LDL at 118/.will add atorvastatin 40 mg. Alvarado Patterson [id number],W,P t complains of near constant fatigue, started several months ago. She is planned for sleep study with her primary care physician. Will check iron panel for her fatigue. Alvarado Patterson [id number],C,L ast lipid panel showed total cholesterol 201, trigs 197, and LDL at 118/. Alicia Weinstein NP Cardiology Richi Tam MD Cardiology Richi Tam MD Cardiology:Amlodipin e caused leg swelling and we will stop. WIll start HCTZ 25mg. B P today: 132/88 P rior BP: 112/92 (01/14/2024) Prior 10 Yr Risk Heart Disease: Not enough information (04/28/2009) Labs Reviewed: C reat: 0.7 (03/02/2009) The following medications were removed from the medication list: Amlodipine 10 Mg Tablet (Amlodipine) ..... Take 1 tablet by mouth once daily Her updated medication list for this problem includes: Hydrochlorothiazide 25 Mg Tablet (Hydrochlorothiazide) ..... Take 1 tablet by mouth once a day Metoprolol Succinate 50 Mg Tablet Extended Release 24 Hr (Metoprolol succinate) ..... Take 1 tablet by mouth once daily. appointment required for future refills. Richi Tam MD Cardiology:Telecentr y showed frequent PVCs with bigeminy. Pt is symptomatic however cannot tolerate increased dose of metoprolol due to dizziness. Echo and stress test unremarkable. Amlodipine caused leg swelling and we will stop. WIll start HCTZ 25mg. Will check magnesium and potassium and refer to EP consult to discuss possible ablation. T he following medications were removed from the medication list: Amlodipine 10 Mg Tablet (Amlodipine) ..... Take 1 tablet by mouth once daily Her updated medication list for this problem includes: Metoprolol Succinate 50 Mg Tablet Extended Release 24 Hr (Metoprolol succinate) ..... Take 1 tablet by mouth once daily. appointment required for future refills. Richi Tam MD Cardiology: H er updated medication list for this problem includes: Metoprolol Succinate 50 Mg Tablet Extended Release 24 Hr (Metoprolol succinate) ..... Take 1 tablet by mouth once daily. appointment required for future refills. Amlodipine 10 Mg Tablet (Amlodipine) ..... Take 1 tablet by mouth once daily BP today: 112/92 P rior BP: 123/84 (08/11/2022) Prior 10 Yr Risk Heart Disease: Not enough information (04/28/2009) Labs Reviewed: C reat: 0.7 (03/02/2009) Nicho Gerton Cardiology:check str ess myoview, echocardiagram, and home sleep [facility] Cardiology: T he following medications were removed from the medication list: Atorvastatin 40 Mg Tablet (Atorvastatin) ..... Take 1 tablet by mouth at bedtime Nicho Gerton Cardiology:reduce BB to 50mg once daily Nicho Gerton Cardiology:check 1 week telemoni tor Nicho Vallejoty Cardiology: She chec ks her BP at home on occasion, well controlled. B P today: 123/84 P rior BP: 130/80 (11/24/2019) Her updated medication list for this problem includes: Metoprolol Succinate 100 Mg Tablet Extended Release 24 Hr (Metoprolol succinate) ..... Take 1 tablet by mouth once a day take 1 tablet by mouth once daily Alvarado Patterson Cardiology:Last lipi d panel showed total cholesterol 201, trigs 197, and LDL at 118/.will add atorvastatin 40 mg. Alvarado Patterson Cardiology:Pt compla ins of near constant fatigue, started several months ago. She is planned for sleep study with her primary care physician. Will check iron panel for her fatigue. Alvarado Patterson Cardiology:Last lipi d panel showed total cholesterol 201, trigs 197, and LDL at 118/. Alicia Weinstein NP Cardiology follow up :BP today: 130/80 P rior BP: 132/76 (09/23/2018) Her updated medication list for this problem includes: Metoprolol Succinate Er 100 Mg Oral Tablet Extended Release 24 Hour (Metoprolol succinate) ..... Take one tablet by mouth once daily. Richi Tam MD Cardiology follow up :Overall doing well. She noted she gets palpitations when she does not take Metoprolol. Will continue Metoprolol. Richi Tam MD Cardiology New patient :No recur rence. Amadou Akers Cardiology New patie nt :BP today: 132/76 P rior BP: 136/80 (07/07/2015) Her updated medication list for this problem includes: Metoprolol Succinate Er 100 Mg Oral Tablet Extended Release 24 Hour (Metoprolol succinate) ..... Take one tablet by mouth once daily. Amadou Akers Cardiology New patie nt :Overall the palpitations are well controlled. She has brief episodes of fluttering at night lasting seconds at a time. Will continue Metoprolol. Amadou Akers fu:BP today: 142/96 P rior BP: 129/79 (12/02/2014) Richi Tam MD fu:Continues to have palpitations. Also had a few episodes of chest pain. Will obtain echo and stress myoview. Will continue the Toprol. If symptoms worsen, will consider EP consult Richi Tam MD follow up: H er updated medication list for this problem includes: Toprol Xl 100 Mg Tb24 (Metoprolol succinate) ..... One tab daily Hydrochlorothiazide 25 Mg Tabs (Hydrochlorothiazide) ..... One tab daily r echeck echo secondary to edema. also add hctz. JULIETA LIMA NP 6 month follow-up: H er updated medication list for this problem includes: Toprol Xl 100 Mg Tb24 (Metoprolol succinate) ..... One tab daily BP today: 130/85 Prior BP: 118/79 (07/19/2009) E K. Normal Sinus rhythm (04/28/2009) N uclear Stress Findings: 1. Moderately impaired exercise capacity 2 . Normal hemodynamic response to exercise 3 [address] or T changes 4 . No significant arrhythmias 5 . There is no evidence for exercise-induced myocardial ischemia. 6 . Normal left ventricular size and function with a calculated ejection fraction of 64%. 7. Myocardial scintigraphy demonstrates a small reversible inferoapical defect consistent with diaphragmatic attenuation [facility] (04/29/2009) H gb: 13.6 (03/02/2009) HCT: 40.7 (03/02/2009) WBC: 12.1 (03/02/2009) B UN: 12 (03/02/2009) Creat: 0.7 (03/02/2009) Glucose: 117 (03/02/2009) N a+: 141 (03/02/2009) K+: 4.5 (03/02/2009) Cl: 103 (03/02/2009) TSH: 2.7 (03/02/2009) Echocardiogram: Normal left ventricular systolic function. Normal left ventricular size. Normal left v entricular wall thickness. Normal left ventricular diastolic function. Normal E/E` 3.7. L eft ventricular ejection fraction is estimated at 65 %. T here is trace physiologic tricuspid valve regurgitation. T here is trace physiologic pulmonic valve regurgitation. [facility] (04/27/2009) Richi Tam MD 6 month follow-up: H er updated medication list for this problem includes: Toprol Xl 100 Mg Tb24 (Metoprolol succinate) ..... One tab daily BP today: 130/85 Prior BP: 118/79 (07/19/2009) E K. Normal Sinus rhythm (04/28/2009) N uclear Stress Findings: 1. Moderately impaired exercise capacity 2 . Normal hemodynamic response to exercise 3 . No [address] or T changes 4 . No significant arrhythmias 5 . There is no evidence for exercise-induced myocardial ischemia. 6 . Normal left ventricular size and function with a calculated ejection fraction of 64%. 7. Myocardial scintigraphy demonstrates a small reversible inferoapical defect consistent with diaphragmatic attenuation [facility] (04/29/2009) H gb: 13.6 (03/02/2009) HCT: 40.7 (03/02/2009) WBC: 12.1 (03/02/2009) B UN: 12 (03/02/2009) Creat: 0.7 (03/02/2009) Glucose: 117 (03/02/2009) N a+: 141 (03/02/2009) K+: 4.5 (03/02/2009) Cl: 103 (03/02/2009) TSH: 2.7 (03/02/2009) Echocardiogram: Normal left ventricular systolic function. Normal left ventricular size. Normal left v entricular wall thickness. Normal left ventricular diastolic function. Normal E/E` 3.7. L eft ventricular ejection fraction is estimated at 65 %. T here is trace physiologic tricuspid valve regurgitation. T here is trace physiologic pulmonic valve regurgitation. [facility] (04/27/2009) Richi Tam MD routine-test results : H er updated medication list for this problem includes: Toprol Xl 50 Mg Tb24 (Metoprolol succinate) ..... One tab daily BP today: 118/79 Prior BP: 148/97 (05/05/2009) E K. Normal Sinus rhythm (04/28/2009) N uclear Stress Findings: 1. Moderately impaired exercise capacity 2 . Normal hemodynamic response to exercise 3 [address] or T changes 4 . No significant arrhythmias 5 . There is no evidence for exercise-induced myocardial ischemia. 6 . Normal left ventricular size and function with a calculated ejection fraction of 64%. 7 . 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 Normal left ventricular size. Normal left v entricular wall thickness. Normal left ventricular diastolic function. Normal E/E` 3.7. L eft ventricular ejection fraction is estimated at 65 %. T here is trace physiologic tricuspid valve regurgitation. T here is trace physiologic pulmonic valve regurgitation. [facility] (04/27/2009) Ricih Tam MD routine-test results : H er updated medication list for this problem includes: Toprol Xl 50 Mg Tb24 (Metoprolol succinate) ..... One tab daily BP today: 118/79 Prior BP: 148/97 (05/05/2009) E K. Normal Sinus rhythm (04/28/2009) N uclear Stress Findings: 1. Moderately impaired exercise capacity 2 . Normal hemodynamic response to exercise 3 . No diagnostic ST or T changes 4 . No significant arrhythmias 5 . There is no evidence for exercise-induced myocardial ischemia. 6 . Normal left ventricular size and function with a calculated ejection fraction of 64%. 7 . Myocardial scintigraphy demonstrates a small reversible inferoapical defect consistent with diaphragmatic attenuation [facility] (04/29/2009) H gb: 13.6 (03/02/2009) HCT: 40.7 (03/02/2009) WBC: 12.1 (03/02/2009) B UN: 12 (03/02/2009) Creat: 0.7 (03/02/2009) Glucose: 117 (03/02/2009) N a+: 141 (03/02/2009) K+: 4.5 (03/02/2009) Cl: 103 (03/02/2009) TSH: 2.7 (03/02/2009) Echocardiogram: Normal left ventricular systolic function. Normal left ventricular size. Normal left v entricular wall thickness. Normal left ventricular diastolic function. Normal E/E` 3.7. L eft ventricular ejection fraction is estimated at 65 %. T here is trace physiologic tricuspid valve regurgitation. T here is trace physiologic pulmonic valve regurgitation. [facility] (04/27/2009) Richi Tam MD Date Name MAGNESIUM BASIC METABOLIC PANE L W/EGFR Sleep Study Home Stress Regadenoson Monitor - Telemetry (Mobile Cardiac) Complete Echo LIPID PANEL IRON AND TOTAL IRON BINDING CAPACITY FERRITIN CBC (INCLUDES DIFF/P LT) STR - Nuclear Complete Echo BASIC METABOLIC PANE L W/EGFR Mobile Cardiac Tele Complete Echo THYROID PANEL WITH T SH, 3RD GENERATION BASIC METABOLIC PANE L W/EGFR TSH, 3RD GENERATION W/REFLEX TO FT4 BASIC METABOLIC PANE L W/EGFR Complete Echo Complete Echo Stress Test - Routin e HISTORY OF PROCEDURES Procedure Date Procedure Name Provider Procedure Notes S tatus EKG Richi Tam MD completed EKG Richi Tam MD completed EKG Richi Tam MD completed Stress EKG Israel Holliday MD complet ed Cardiolite, 2 units Richi Tam MD c ompleted SPECT Images Isreal Holliday MD compl eted EKG Richi Tam MD completed EKG Richi Tam MD completed EKG Richi Tam MD completed EKG Richi Tam MD completed
--- OUTSIDE RECORDS SUMMARY | 2025-03-31 09:26 | XMS_ITS | Referral Summary ---
Author Organization [facility] Address [address] [place] [address] Care Team Providers Care Park Guide Name Role Phone Jose Stinson MD Primary Care Provider Encounters Date Type Department Care Team Description 02/23/2025 3:18 PM CDT - 02/23/2025 11:59 PM CDT Hospital Encounter [facility] 1 [place] [address] Chronic metabolic acidosis Discharge Disposition: Discharge to home or self care 02/03/2025 1:36 PM CDT - 02/03/2025 11:59 PM CDT Hospital Encounter [facility] [address] [place] [address] Discharge Disposition: Discharge to home or self care 02/03/2025 12:55 PM CDT Lab [address] [address] 02/03/2025 12:50 PM CDT - 02/03/2025 11:59 PM CDT Hospital Encounter [address] [address] Discharge Disposition: Discharge to home or self care 01/22/2025 9:14 PM CDT - 01/23/2025 12:08 AM CDT Emergency [facility] Emergency Department 1 [place] [address] Rogelio Herman MD Abdominal pain (Primary Dx) Discharge Disposition: Discharge to home or self care from Last 3 Months Allergies Active Allergy Reactions Criticality Noted Date [...] Date Resolved Date Kidney stone 09/05/2021 09/05/2021 Social History Tobacco Use Types Packs/Day Years [...] often do you attend chur ch or samaritan services? More than 4 times per year 09/07/2021 Do you belong to any clubs o r organizations such as sabianism groups, unions, fraternal or athletic groups, or [...] place to sleep or slept in a [place] [facility] [place] facility (including now)? No 09/07/2021 Personal Safety Answer Date Recorded Have you ever been in or are you currently in a harmful physical or emotional relationship or is someone making you feel afraid or unsafe? 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 Gender Identity Not on file Sexual Orientation [...] 01/22/2025 9:01 PM CDT Plan of Treatment Not on file Medical Devices Explanted Type Area Process Validation Engineer Device Identifier Shelf Expiration Date Model / Serial / Lot [id number] [id number] [id number] 28cm Radiopaque Graduate Gustabo Positioner - [id number] Implanted:Qty: 1 on 09/06/2021 by Grant Ramirez MD at [facility] Explanted:Qty: 1 on 09/21/2021 by Grant Ramirez MD at [facility] Left: Urethra [employer] 08/01/2024 [id number] / / [id number] Procedures Procedure Name Priority Date/Time Associated Diagnosis [...] 02/03/2025 11:30 AM CDT URINE MISC TO BRANDT Routine 02/03/2025 11 :30 AM CDT VOLUME [...] Poli Trevino M.D. AG: HERBIE Report ID: [id number] Reading Location: [id number] Procedure Note Poli Trevino MD - 02/26/2025 [...] Electronically signed by Poli Trevino M.D. AG: AG Report ID: [id number] Reading Location: [place] [address] Jose Antonio Grande MD IMG US PROCEDURES Final Resul t * (ABNORMAL) Blood gas, arterial (02/03/2025 2:10 PM CDT) pH, Art 7.38 7.35 - 7.45 PCO2, Arterial 29(L) 35 - 45 mmHg [facility] ([place]) PO2, Arterial 86 83 - 108 mmHg [facility] ([place]) HCO3 Art (Calculated) 17(L) 20 - 30 mmol/L [facility] ([place]) BE, art -7 mmol/L [facility] ([place]) Comment: Interpretive Data No Reference Range Established Current Interpretive Data was last revised on 2017 O2 Sat Art (Measured) 96(H) 90 - 95 % [facility] ([place]) Blood 02/03/2025 2:10 PM CDT 02/03/2025 2:16 PM CDT Jose Antonio Grande MD LAB BLOOD ORDERABLES Final Re sult [facility] RUBY ([place]) 1 [facility] Department [place] [address] * eGFR (02/03/2025 1:17 PM CDT) eGFR [...] LAB BLOOD ORDERABLES Final Re sult [facility] [place] 1 [facility] Department [place] [address] * eGFR (02/03/2025 1:17 PM CDT) eGFR [...] LAB BLOOD ORDERABLES Final Re sult [facility] FLORI ([place]) 1 [facility] Department [place] [address] * Differential, auto (02/03/2025 1:17 PM CDT) Neutrophil abs 5.42 1.50 - 6.50 K/cumm Imm gran abs 0.02 0.00 - 0.10 K/cumm [facility] ([place]) Lymphocyte abs 1.92 0.80 - 3.30 K/cumm [facility] ([place]) Monocyte abs 0.63 0.20 - 0.80 K/cumm [...] Lymphocyte pct 23.3 % [facility] ([place]) Comment: Interpretive Data Percent cell count reference ranges are not reported, since discordance with absolute values may lead to misinterpretation of CBC data. Current Interpretive Data was last revised on 2018. Monocyte pct 7.6 % [facility] RUBY ([place]) Comment: Interpretive Data Percent cell count reference ranges are not reported, since discordance with absolute values may lead to misinterpretation of CBC data. Current Interpretive Data was last revised on 2018. Eosinophil pct 2.4 % [facility]LETTANE R FLORI ([place]) Comment: Interpretive Data Percent cell count reference ranges are not reported, since discordance with absolute values may lead to misinterpretation of CBC data. Current Interpretive Data was last revised on 2018. Basophil pct 0.7 % [facility] ([place]) Comment: Interpretive Data Percent cell count reference ranges are not reported, since discordance with absolute values may lead to misinterpretation of CBC data. Current Interpretive Data was last revised on 2018. Blood 02/03/2025 1:17 PM CDT 02/03/2025 1:47 PM CDT us Jose Antonio Grande MD LAB BLOOD ORDERABLES Final Re sult [facility] ([place]) 1 [facility] Department [place] [address] * Renin activity (02/03/2025 1:17 PM CDT) Renin <0.6 ng/mL/H [place] [facility] Comment: REFERENCE VALUE (Peripheral vein specimen) Na-deplete, upright: Mean: 5.9 Range: 2.9-10.8 Na-replete, upright: Mean: 1.0 Range: < or =0.6-3.0 ADDITIONAL INFORMATION Testing performed by Liquid Chromatography-Tandem Mass Spectrometry (LC-MS/MS). This test was developed and its performance characteristics determined by [facility] in a manner consistent with CLIA requirements. This test has not been cleared or approved by the U.S. Food and Drug Administration. Test Performed by: [facility] [address] [place] [address] Patient Account Specialist: Stephanie Gr Ph.D.; CLIA# [id number] Blood 02/03/2025 1:17 PM CDT 02/03/2025 1:47 PM CDT us Jose Antonio Grande MD LAB BLOOD ORDERABLES Final Re sult [facility] ([place]) 1 [facility] Department [place] [address] [place] ref [facility] * (ABNORMAL) Urinalysis reflex to microscopic and culture Urine (02/03/2025 1:17 PM CDT) Color, ur Yellow Yellow Clarity, ur Turbid(A) Clear [facility] A [facility] ([place]) Specific gravity, ur 1.026 1.003 - 1.030 [facility] ([place]) pH, urine 5.5 [facility] ([place]) Comment: Interpretive Data U rine pH is affected by diet, medications, systemic acid-base disturbances, and renal tubular function. pH may affect urinary stone formation. For example, urine pH below 6.0 may help reduce the tendency for calcium phosphate stones and pH greater than 6.0 may reduce the tendency for uric acid stone formation. Source: [facility] Current Interpretive Data was last revised on [...] PM CDT Jose Antonio Grande MD LAB MICROBIOLOGY - GENERAL OR DERABLES Final Result Performing Organization Address [facility] Co de Phone Number [facility] ([place]) 1 [facility] [place] [address] * CBC with auto differential (02/03/2025 1:17 [...] (ANASTASIYA) MCHC 33.3 32.3 - 35.7 g/dL [facility] ([place]) RDW CV 13.8 11.1 - 14.9 % [facility] ([place]) RDW SD 46.5 35.7 - 48.1 fL [facility] ([place]) NRBC abs 0.00 0.00 - 0.01 K/cumm [facility] ([place]) Blood 02/03/2025 1:17 PM CDT 02/03/2025 1:47 PM CDT Jose Antonio Grande MD LAB BLOOD ORDERABLES Final Re sult Performing Organization Address City/[facility]/ZIP Co de Phone Number [facility] RUBY ([place]) 1 [facility] [place] [address] * Protein / creatinine ratio, urine, random (02/03/2025 1:17 PM CDT) Protein, ur, quant 24.5 mg/dL Comment: Interpretive Data No reference range established. Current interpretive data was last revised 2019. Creatinine Ur 260.9 mg/dL [facility] ([place]) Comment: Interpretive Data No reference range established. Current interpretive data was last revised 2019. Protein/creatinin e ratio 93.9 0.0 - 180.0 mg/g CR [facility] ([place]) Urine 02/03/2025 1:17 PM CDT 02/03/2025 2:22 PM CDT us Jose Antonio Grande MD LAB URINE ORDERABLES Final Re sult Performing Organization Address [facility] Co de Phone Number [facility] ([place]) 1 [facility] [place] [address] * Aldosterone (02/03/2025 1:17 PM CDT) Pathologist [facility] Aldosterone 7.8 <=21 ng/dL [place] [facility] Comment: ADDITIONAL INFORMATION Reference range for patients 11 years and older is based on upright A.M. collection from subjects without sodium restrictions. This test was developed and its performance characteristics determined by [facility] in a manner consistent with CLIA requirements. This test has not been cleared or approved by the U.S. Food and Drug Administration. Test Performed by: [facility] [address] [id number] Patient Account Specialist: Stephanie Gr Ph.D.; CLIA# [id number] Blood 02/03/2025 1:17 PM CDT 02/03/2025 1:47 PM CDT us Jose Antonio Grande MD LAB BLOOD ORDERABLES Final Re sult Performing Organization Address [facility]/ZIP Co de Phone Number [facility] ([place]) 1 [place] [address] [facility] [facility] * Sodium, urine, random (02/03/2025 1:17 PM CDT) Sodium, ur 88 mmol/L Comment: Interpretive Data No reference range established. Current interpretive data was last revised 2019. Urine 02/03/2025 1:17 PM CDT 02/03/2025 2:22 PM CDT Narrative [facility] ([place]) - 02/03/2025 3:14 PM CDT No normal range us Jose Antonio Grande MD LAB URINE ORDERABLES Final Re sult Performing Organization Address [facility]/ZIP Co de Phone Number [facility] ([place]) 1 [place] [address] * Potassium, urine, random (02/03/2025 1:17 PM CDT) Potassium conc, ur 103.4 mmol/L Comment: Interpretive Data No reference range established. Current interpretive data was last revised 2019. Urine 02/03/2025 1:17 PM CDT 02/03/2025 2:22 PM CDT us Jose Antonio Grande MD LAB URINE ORDERABLES Final Re sult Performing Organization Address City/[facility]/ZIP Co de Phone Number [facility] RUBY ([place]) 1 [facility] [place] [address] * Chloride, urine, random (02/03/2025 1:17 PM CDT) Chloride, ur 185 mmol/L Comment: Interpretive Data No reference range established. Current interpretive data was last revised 2019. Urine 02/03/2025 1:17 PM CDT 02/03/2025 2:22 PM CDT Narrative [facility] ([place]) - 02/03/2025 3:14 PM CDT No normal range Jose Antonio Grande MD LAB URINE ORDERABLES Final Re sult [facility] ([place]) 1 [facility] [place] [address] * (ABNORMAL) Vitamin D 25 hydroxy (02/03/2025 1:17 PM CDT) Vitamin D 25-OH 12(L) 30 - 80 ng/mL Blood 02/03/2025 1:17 PM CDT 02/03/2025 1:47 PM CDT Jose Antonio Grande MD LAB BLOOD ORDERABLES Final Re sult Performing Organization Address [facility] Co de Phone Number [facility] RUBY ([place]) 1 [facility] [place] [address] * (ABNORMAL) Urinalysis, microscopic only (02/03/2025 1:17 PM CDT) WBC, ur 0-5 0 - 5 /HPF RBC, ur 0-2 0 - 2 /HPF [facility] ([place]) Epithelial cells, squamous, ur 1-5 0 - 5 /HPF [facility] ([place]) Bacteria, ur 2+(A) [facility] ([place]) Mucous, ur Present(A) [facility] ([place]) Hyaline casts, ur 6-10 0 - 10 /LPF [facility] ([place]) Culture Reflex Comment Reflex conditions for urine culture (WBC >10) not met. [facility] ([place]) Urine 02/03/2025 1:17 PM CDT 02/03/2025 2:22 PM CDT us Jose Antonio Grande MD LAB URINE ORDERABLES Final Re sult Performing Organization Address [facility]/ZIP Co de Phone Number [facility] RUBY ([place]) 1 [facility] [place] [address] * Uric acid (02/03/2025 1:17 PM CDT) Uric acid 4.2 2.5 - 7.0 mg/dL Blood 02/03/2025 1:17 PM CDT 02/03/2025 1:47 PM CDT Jose Antonio Grande MD LAB BLOOD ORDERABLES Final Re sult [facility] RUBY ([place]) 1 [facility] [place] [address] * (ABNORMAL) TSH (02/03/2025 1:17 PM CDT) Thyroid Stimulating Hormone 4.72(H) 0.30 - 4.20 mcIUnit/mL Blood 02/03/2025 1:17 PM CDT 02/03/2025 1:47 PM CDT Jose Antonio Grande MD LAB BLOOD ORDERABLES Final Re sult Performing Organization Address City/[facility]/ZIP Co de Phone Number [facility] RUBY ([place]) 1 [facility] [place] [address] * T4, free (02/03/2025 1:17 PM CDT) Pathologist [facility] Free T4 1.09 0.90 - 1.70 ng/dL Blood 02/03/2025 1:17 PM CDT 02/03/2025 1:47 PM CDT us Jose Antonio Grande MD LAB BLOOD ORDERABLES Final Re sult Performing Organization Address City/[facility]/ZIP Co de Phone Number [facility] RUBY ([place]) 1 [facility] [place] [address] * Phosphorus (02/03/2025 1:17 PM CDT) Phosphorus, pl 2.9 2.3 - 4.5 mg/dL Blood 02/03/2025 1:17 PM CDT 02/03/2025 1:47 PM CDT us Jose Antonio Grande MD LAB BLOOD ORDERABLES Final Re sult Performing Organization Address City/[facility]/ZIP Co de Phone Number [facility] RUBY ([place]) 1 [place] [address] * (ABNORMAL) PTH (02/03/2025 1:17 PM CDT) PTH 67(H) 15 - 65 pg/mL Blood 02/03/2025 1:17 PM CDT 02/03/2025 1:47 PM CDT us Jose Antonio Grande MD LAB BLOOD ORDERABLES Final Re sult Performing Organization Address [facility] de Phone Number [facility] RUBY ([place]) [address] [place] [address] * Magnesium (02/03/2025 1:17 PM CDT) Magnesium 1.9 1.4 - 2.5 mg/dL Blood 02/03/2025 1:17 PM CDT 02/03/2025 1:47 PM CDT us Jose Antonio Grande MD LAB BLOOD ORDERABLES Final Re sult Performing Organization Address [facility] de Phone Number [facility] RUBY ([place]) 1 [facility] [place] [address] * Hemoglobin A1c (02/03/2025 1:17 PM CDT) Hgb A1C 5.2 4.0 - 5.6 % Estimated Average Glucose 103 mg/dL [facility] ([place]) Comment: The ADA recommends reporting an estimated Average Glucose (eAG) with all Hemoglobin A1c results using the equation derived from a study of 507 normal and diabetic adults. Minority populations were underrepresented and children were not included. (Diabetes Care 31:8890-1924, 2008). The eAG is not equivalent to a fasting glucose. Blood 02/03/2025 1:17 PM CDT 02/03/2025 1:47 PM CDT us Jose Antonio Grande MD LAB BLOOD ORDERABLES Final Re sult Performing Organization Address [facility]/ZIP Co de Phone Number [facility] RUBY ([place]) 1 [facility] [place] [address] * Creatinine (02/03/2025 1:17 PM CDT) Creatinine 0.85 0.60 - 1.10 mg/dL Urine/Blood 02/03/2025 1:17 PM CDT 02/03/2025 1:47 PM CDT us Jose Antonio Grande MD LAB BLOOD ORDERABLES Final Re sult Performing Organization Address [facility] Co de Phone Number [facility] RUBY ([place]) 1 [facility] [place] [address] * Bilirubin, direct (02/03/2025 1:17 PM CDT) Bilirubin, direct <0.1 0.1 - 0.3 mg/dL Blood 02/03/2025 1:17 PM CDT 02/03/2025 1:47 PM CDT us Jose Antonio Grande MD LAB BLOOD ORDERABLES Final Re sult Performing Organization Address [facility] Co de Phone Number [facility] RUBY ([place]) 1 [facility] [place] [address] * (ABNORMAL) Comprehensive metabolic panel (02/03/2025 1:17 PM CDT) Sodium 140 135 - 145 mmol/L Potassium, pl 4.2 3.3 - 4.9 mmol/L [facility] ([facility]) Chloride 109 97 - 110 [...] classification and Diagnosis of Diabetes Diabetes Care 202; 46: S19-S40. Current interpretive data was last revised 2022. Calcium 9.2 8.5 - 10.3 mg/dL [facility] ([place]) Bilirubin, total 0.3 0.1 - 1.2 mg/dL [facility] ([place]) Protein, pl 7.1 6.5 - 8.5 g/dL [facility] ([place]) Albumin 4.1 3.5 - 5.0 g/dL [facility] ([place]) Alk phos 94 40 - 130 Units/L [facility] ([place]) ALT 10 7 - 45 Units/L [facility] ([place]) AST 12 10 - 45 Units/L [facility] ([place]) Blood 02/03/2025 1:17 PM CDT 02/03/2025 1:47 PM CDT us Jose Antonio Grande MD LAB BLOOD ORDERABLES Final Re sult [facility] ([place]) 1 [facility] Department of Laboratories [place], [place] [id number] * (ABNORMAL) Citrate, urine, 24 hour (02/03/2025 11:30 AM CDT) Citric acid, 24 hr ur 139(L) 321 - 1191 mg/24H [place] ref [facility] Comment: ADDITIONAL INFORMATION This test was developed and its performance characteristics determined by [facility] in a manner consistent with CLIA requirements. This test has not been cleared or approved by the U.S. Food and Drug Administration. Urine 02/03/2025 11:3 0 AM CDT 02/03/2025 1:47 PM CDT us Jose Antonio Grande MD LAB URINE ORDERABLES Final Re sult [facility] RUBY ([place]) 1 [facility] Department [place] [address] [place] ref [facility] * URINE MISC TO SUQUAMISH (02/03/2025 11:30 AM CDT) Test name, chem OXU Oxalate, 24 Hr, U [place] ref [facility] Misc See Comment [facility]IS RICH[place]D ([place]) Comment: Test Result Flag Unit RefValue Oxalate, 24 Hr, U Oxalate, 24 Hr, U 0.26 mmol/24 h 0.11 - 0.46 (mmol/24 hr) ADDITIONAL INFORMATION This test has been modified from the parking assistant's instructions. Its performance characteristics were determined by [facility] in a manner consistent with CLIA requirements. This test has not been cleared or approved by the U.S. Food and Drug Administration. Oxalate, 24 Hr, U 22.9 mg/24 h 9.7 - 40.5 (mg/24 hr) Collection Duration 24 h Urine Volume 1600 mL Test Performed by: [facility] - [address] [address] Patient Account Specialist: Stephanie Gr Ph.D.; CLIA# [id number] Urine 02/03/2025 11:3 0 AM CDT 02/03/2025 1:47 PM CDT Jose Antonio Grande MD LAB URINE ORDERABLES Final Re sult Performing Organization Address City/[facility]/ZIP Co de Phone Number [facility] RUBY ([place]) [address] [place] [address] [place] [address] [facility] ref [facility] * Volume and period, urine, 24 hour (02/03/2025 11:30 AM CDT) Volume, ur 1,600 mL Period, Urine Collection 1,440 min [facility] ([place]) Urine 02/03/2025 11:3 0 AM CDT 02/03/2025 1:47 PM CDT Jose Antonio Grande MD LAB URINE ORDERABLES Final Re sult Performing Organization Address [facility] Co de Phone Number [facility] ([place]) [address] [place] [address] [place] [address] * Volume and period, urine, 24 hour (02/03/2025 11:30 AM CDT) Volume, ur 1,600 mL Period, Urine Collection 1,440 min [facility] ([place]) Urine 02/03/2025 11:3 0 AM CDT 02/03/2025 1:47 PM CDT Jose Antonio Grande MD LAB URINE ORDERABLES Final Re sult Performing Organization Address City/[facility] Co de Phone Number [facility] RU[facility] ([place]) [address] [place] [address] [place] [address] * Volume and period, urine, 24 hour (02/03/2025 11:30 AM CDT) Volume, ur 1,600 mL Period, Urine Collection 1,440 min [facility] ([place]) Urine 02/03/2025 11:3 0 AM CDT 02/03/2025 1:47 PM CDT us Jose Antonio Grande MD LAB URINE ORDERABLES Final Re sult Performing Organization Address [facility] Co de Phone Number [facility] RU[facility] ([place]) [address] [place] [address] [place] [address] * (ABNORMAL) Sodium, urine, 24 hour (02/03/2025 11:30 AM CDT) Sodium, 24 hr ur 229(H) 40 - 220 mmol/24H Urine 02/03/2025 11:3 0 AM CDT 02/03/2025 1:47 PM CDT us Jose Antonio Grande MD LAB URINE ORDERABLES Final Re sult Performing Organization Address [facility] de Phone Number [facility] RUBY ([place]) [address] [place] [address] [place] [address] * (ABNORMAL) Creatinine clearance, urine, 24 hour (02/03/2025 11:30 AM CDT) Creatinine Clearance 135(H) 60 - 130 mL/min Creatinine, 24 hr, ur 1.7(H) 0.6 - 1.5 g/24H [facility] ([place]) Urine/Blood 02/03/2025 11:3 0 AM CDT 02/03/2025 1:47 PM CDT us Jose Antonio Grande MD LAB URINE ORDERABLES Final Re sult Performing Organization Address [facility] Co de Phone Number [facility] ([place]) 1 [facility] [place] [address] * Calcium, urine, 24 hour (02/03/2025 11:30 AM CDT) Calcium, 24 hr ur 203 25 - 300 mg/24H Comment:Testing performed by : [facility], [address] [facility], [place]., [address] Urine 02/03/2025 11:3 0 AM CDT 02/03/2025 7:58 PM CDT Jose Antonio Grande MD LAB URINE ORDERABLES Final Re sult Performing Organization Address [facility] Co de Phone Number [facility] ([place]) 1 [facility] [place] [address] * Troponin T high-sensitivity 2-hour (01/22/2025 11:38 [...] 8 PM CDT 01/22/2025 11:41 PM CDT Rogelio Herman MD LAB BLOOD ORDERABLES Final Res ult Performing Organization Address [facility] Co de Phone Number [facility] RBUY ([place]) 1 [facility] [place] [address] * CT Abdomen Pelvis W Contrast (01/22/2025 [...] Dylan Torre M.D. KT: LAUREN Report ID: [id number] Reading Location: [id number] Procedure Note Dylan Torre MD - 01/22/2025 EXAM DESCRIPTION: CT ABDOMEN [...] Dylan Torre M.D. KT: LAUREN Report ID: [id number] Reading Location: [place] [address] Rogelio Herman MD [facility] CT PROCEDURES Final Result * (ABNORMAL) Differential, [...] BLOOD ORDERABLES Final Res ult [facility] ([place]) 1 [facility] Department [place] [address] * (ABNORMAL) CBC with auto differential (01/22/2025 [...] RDW SD 45.0 35.7 - 48.1 fL [facility] ([place]) NRBC abs 0.00 0.00 - 0.01 K/cumm [facility] ([place]) Blood 01/22/2025 10:2 2 PM CDT 01/22/2025 10:25 PM CDT us Rogelio Herman MD LAB BLOOD ORDERABLES Final Res ult [facility] ([place]) 1 [facility] Department [place] [address] * (ABNORMAL) Urinalysis reflex to microscopic and culture Urine (01/22/2025 9:47 PM CDT) Color, ur Yellow Yellow Clarity, ur Clear Clear [facility] ([place]) Specific gravity, ur 1.031(H) 1.003 - 1.030 [facility] ([place]) pH, urine 6.0 [facility] ([place]) Comment: Interpretive Data U rine pH is affected by diet, medications, systemic acid-base disturbances, and renal tubular function. pH may affect urinary stone formation. For example, urine pH below 6.0 may help reduce the tendency for calcium phosphate stones and pH greater than 6.0 may reduce the tendency for uric acid stone formation. Source: [facility] Current Interpretive Data was last revised on 2017 Protein, ur ql Trace Negative [facility] ([place]) Glucose, ur ql Negative Negative [facility] ([place]) Ketones, ur Trace Negative [facility] ([place]) Bilirubin, ur Negative Negative [facility] ([place]) Blood, ur Negative Negative [facility] ([place]) Urobilinogen, ur <2.0 <2.0 mg/dL [facility] ([place]) Nitrite, ur Negative Negative [facility] ([place]) Leukocyte esterase, ur Negative Negative [facility] ([place]) UA reflex comment Reflex conditions for microscopic UA and culture not met. [facility] ([place]) Urine 01/22/2025 9:47 PM CDT 01/22/2025 9:51 PM CDT Rogelio Herman MD LAB MICROBIOLOGY - GENERAL ORD ERABLES Final Result [facility] ([place]) 1 [facility] Department [place] [address] * POCT hCG, urine (01/22/2025 9:47 PM [...] BLOOD ORDERABLES Final Res ult [facility] [place] 1 [facility] Department of Laboratories [place], [place] [id number] * eGFR (01/22/2025 9:36 PM CDT) eGFR [...] BLOOD ORDERABLES Final Res ult [facility] ([place]) 1 [facility] Department [place] [address] * Lipase (01/22/2025 9:36 PM CDT) Lipase 40 10 - 99 Units/L Blood Venous blood specimen / Unknown 01/22/2025 9:36 PM CDT 01/22/2025 9:39 PM CDT Rogelio Herman MD LAB BLOOD ORDERABLES Final Res ult Performing Organization Address [facility] Co de Phone Number [facility] ([place]) 1 [facility] Department [place] [address] * (ABNORMAL) Comprehensive metabolic panel (01/22/2025 9:36 PM CDT) Sodium 137 135 - 145 mmol/L Potassium, pl 4.2 3.3 - 4.9 mmol/L [facility] ([place]) Chloride 108 97 - 110 mmol/L [facility] ([place]) CO2 16(L) 22 - 32 mmol/L [facility] ([place]) Anion gap 13 2 - 15 mmol/L [facility] ([place]) BUN 14 6 - 25 mg/dL [facility] ([place]) Creatinine 0.88 0.60 - 1.10 mg/dL [facility] ([place]) Glucose 120 70 - 199 mg/dL [facility] ([place]) Comment: Interpretive Data Fasting glucose >/= [...] 2022. Calcium 8.6 8.5 - 10.3 mg/dL [facility] ([place] Bilirubin, total <0.2 0.1 - 1.2 mg/dL [facility] ([place]) [...] ORDERABLES Final Res ult Performing Organization Address City/[facility] Co de Phone Number [facility] ([place]YA) 1 [facility] Department [place] [address] * ECG 12 lead (01/22/2025 9:07 PM CDT) 01/22/2025 9:07 PM CDT Narrative [facility] - 01/23/2025 10:24 AM CDT Vent Rate: 84 bpm RR Interval: 710 msec HI Interval: 154 msec QRS Duration: 83 msec QT Interval: 341 msec QTC Interval: 382 msec P-R-T [place]: 44 - 6 - 21 degrees IMPRESSION: [...] ECG ORDERABLES Final Result Performing Organization Address City/[facility]/ZIP Co de Phone Number [facility] from Last 3 Months Insurance [facility] CHOICE PLUS [facility] Advance Directives For more information, please contact: [phone] * Full Code (Latest Code Status on File) Date Activated Date Inactivated Comments 09/05/2021 4:57 PM 09/07/2021 8:11 PM Care Teams Park Guide Relationship Specialty [place] [address] [address] PCP - General 02/05/21
[2025-03-31 09:28] VITALS: BP 147/114; PULSE 73; RESP 20; TEMP 36.7; O2SAT 96
--- OUTSIDE RECORDS SUMMARY | 2025-03-31 09:31 | XMS_ITS | CONTINUITY OF CARE DOCUMENT ---
Author Name austin, austin Address Unknown Organization [facility] Address [address] [place] [address] Phone [phone] Care Team Providers Care Circus Rider Name Role Phone Anel ORTIZ, Richi Alexander Unavailable [phone] Desiree DIRECTOR HUMAN SERVICES, Treasure Unavailable [phone] Desiree DIRECTOR HUMAN SERVICES, Treasure Unavailable [phone] PROBLEMS Condition Status Date Provider Notes CHEST PAIN-04/13 NUC SM. REV INF AP DIAPH. ATT. completed - Richi Tam MD Family History of Hypertension: completed - Richi Tam MD Cardiology examination active Alicia abad DIRECTOR HUMAN SERVICES Family hx of coronary heart disease (CAD) active Alvarado Patterson Hyperlipidemia active Alicia Nalluri DIRECTOR HUMAN SERVICES Fatigue active Aliciajacoby Weinstein DIRECTOR HUMAN SERVICES Family History of Hypertension: completed - Richi Tam MD EDEMA completed - Richi Tam MD CHEST PAIN-04/13 RT STRESS ISCHEMIA completed - Richi Tam MD HTN- 01/14 ECHO EF 60-04/13 EC HO EF 65 active ? Jose Sol RN ENCOUNTERS Date Type Provider Location Encounter Diag nosis - In-person encounter Office Visit Richi Tam MD [place] [facility] - In-person encounter Office Visit Richi Tam MD [place] [facility] - In-person encounter Office Visit Richi Tam MD [facility] Office Cardiology examinationFatigueHyperlipidemiaFamily hx of coronary heart disease (CAD) - In-person encounter Office Visit Richi Tam MD [facility] CHEST PAIN-04/13 NUC SM. REV INF AP DIAPH . ATT.EDEMA - In-person encounter Office Visit Richi Tam MD [place] [facility] CHEST PAIN-04/13 RT STRESS ISCHEMIAFamily History of Hypertension:Family History of Hypertension: - In-person encounter Office Visit Richi Tam MD [facility] - In-person encounter Office Visit Richi Tam MD [facility] - In-person encounter Office Visit Richi Tam MD [facility] - In-person encounter Office Visit Richi Tam MD [facility] - In-person encounter Office Visit Richi Tam MD [facility] Office - In-person encounter Office Visit Richi Tam MD [facility] - In-person encounter Office Visit Richi Tam MD [facility] - In-person encounter Office Visit Richi Tam MD [facility] - In-person encounter Office Visit Israel Holliday MD [facility] HTN- 01/14 ECHO EF 60-04/13 ECHO EF 65 - In-person encounter Office Visit Israel Holliday MD [facility] VITAL SIGNS Date Observation Value Provider [...] kLog blood pressure, diastolic 92 mm[Hg] Mo [facility] blood pressure, systolic 112 mm[Hg] Jeremy [facility] pulse rate 60 /min Eugenia Melrude oxygen saturation, oximetry 98 % [facility] respiratory rate E&M 14 /min Eugenia Alexander adrian weight E&M 293 [lb_av] Eugenia Melrude height E&M 70 [in_i] Eugenia Melrude Body Mass Index (Ratio) 42.47 kg/m2 Mitch [...] Shanae costa Blankenship weight E&M 289 [lb_av] gNuyen lloyd Body Mass Index (Ratio) 35.72 kg/m2 [...] Nuñez blood pressure, systolic 130 mm[Hg] Lalo Schumacher pulse rate 64 /min Kirsten Schumacher oxygen [...] height E&M 70 [in_i] JULIETA JOSEPHIC K DIRECTOR HUMAN SERVICES blood pressure, diastolic, left arm 80 mm [Hg] JULIETA JOSEPHICK DIRECTOR HUMAN SERVICES blood pressure, systolic, left arm 140 mm [Hg] JULIETA JOSEPHICK DIRECTOR HUMAN SERVICES blood pressure, diastolic, right arm 98 m [...] pressure, diastolic, right arm 76 m m[Hg] Jose Sol RN blood pressure, [...] physical exercise, frequency, days per week no Ngueyn Blankenship alcohol use, average drinks per day none Nguyen Blankenship caffeine use, averag e drinks per day no Nguyen Blankenship passive cigarette sm bj exposure no Nguyen Blankenship smoking status Never smoker Nguyen Juan Antonio martino physical exercise, frequency, days per week [...] per day none [employer] smoking status Non-smoker [facility] FUNCTIONAL STATUS Date Observation Value Provider periodic [...] Payer name Policy type / Coverage type [place] [employer] [facility] 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 B P today: 123/84 P rior BP: 130/80 (11/24/2019) Her updated medication list for this problem includes: Metoprolol Succinate 100 Mg Tablet Extended Release 24 Hr (Metoprolol succinate) ..... Take 1 tablet by mouth once a day take 1 tablet by mouth once daily Alvarado Patterson [id number],W,L ast lipid panel showed total cholesterol 201, trigs 197, and LDL at 118/.will add atorvastatin 40 mg. Alvarado Patterson [id number],W,P t complains of near constant fatigue, started several months ago. She is planned for sleep study with her primary care physician. Will check iron panel for her fatigue. Alvarado Patterson [id number],C,L ast lipid panel showed total cholesterol 201, [...] Labs Reviewed: C reat: 0.7 (03/02/2009) [facility]:check str ess myoview, echocardiagram, and home sleep [facility]: T he following medications were removed from the medication list: Atorvastatin 40 Mg Tablet (Atorvastatin) ..... Take 1 tablet by mouth at bedtime [facility]:reduce BB to 50mg once daily [facility]:check 1 week telemoni tor Nicho Vallejoty [...] here is trace physiologic pulmonic valve regurgitation. 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 [facility] (04/27/2009) Richi Tam MD routine-test results : [...] here is trace physiologic pulmonic valve regurgitation. [facility] (04/27/2009) Richi Tam MD Date Name MAGNESIUM [...] Richi Tam MD c ompleted SPECT Images Israel Holliday MD compl eted EKG Richi Tam MD completed EKG Richi Tam MD completed EKG Richi Tam MD completed EKG Richi Tam MD completed
--- OUTSIDE RECORDS SUMMARY | 2025-03-31 09:31 | XMS_ITS | Continuity of Care Document ---
Author Organization [facility] [employer] Address [address] [place] [address] Phone Care Team Providers Care Sock Boarder Name Role Phone Jose Stinson MD Unavailable Unavailable Allergies, Adverse Reactions, Alerts Substance Reaction Status Criticality PENICILLIN Rash(moderate)Rash(moderate) Active No Information Medications Medication Instructions Dosage Effective Dates (start - stop) Status Comments Nurtec 75 MG Oral Tablet Disintegrating DISSOLVE 1 TABLET BY MOUTH ON TOP OF TONGUE AND ALLOW TO DISSOLVE THEN SWALLOW ONCE NEEDED FOR MIGRAINE. MAX 1 DOSE PER 24 HOURS. - Active Topiramate 100 MG Oral Tablet Take 1 tablet by mouth twice daily - Active omeprazole 40 mg capsule,delayed release take 1 capsule by oral route every day before a meal 40 MG - Active metoprolol succinate ER 50 mg tablet,extended release 24 hr take 1 tablet by oral route every day 50 MG - Active Wegovy 0.25 mg/0.5 mL subcutaneous pen injector inject (0.25MG) by subcutaneous route every week on the same day of each week 0.25 MG - Active Dx prediabetes, morbid obesity Procedures Procedure Date UPPER GI ENDOSCOPY BIOPSY FALL RISK ASSESSMENT DOC'D PRES/ABSN URINE INCON ASSESS Pt inelig neg scrn depres GENERAL HEALTH PANEL LIPID PANEL MAGNESIUM (MG), SERUM VITAMIN B12 (SERUM) ROUTINE VENIPUNCTURE Anti-deamidated gliadin peptide IgA Anti-deamidated gliadin peptide IgG Anti-tissue Transglutaminase IgA 2023 Anti-tissue Transglutaminase IgG 2023 HEMOGLOBIN A1C HGA1C, GLYCO OFFICE [id number] Visit Complexity Inherent To E/M 2023 BODY MASS INDEX DOCD SYST BP LT 130 MM HG DIAST BP 80-89 MM HG COLONOSCOPY, FLEXIBLE, DIAGNOSTIC W/ COL LECTION OF SPECIMEN FALL RISK ASSESSMENT DOC'D PRES/ABSN URINE INCON ASSESS Pt inelig neg scrn depres CBC, INC PLATELETS AND DIFFERENTIAL COMPREHEN METABOLIC PANEL CMP FERRITIN LEVEL IRON (FE), TOTAL TIBC, & % SATURATION LIPID PANEL VITAMIN B12 (SERUM) ROUTINE VENIPUNCTURE PREVENTATIVE-EST: 40-64 BODY MASS INDEX DOCD SYST BP LT 130 MM HG DIAST BP 80-89 MM HG FALL RISK ASSESSMENT DOC'D PRES/ABSN URINE INCON ASSESS Pt inelig neg scrn depres GENERAL HEALTH PANEL LIPID PANEL VITAMIN B12 (SERUM) ROUTINE VENIPUNCTURE PREVENTATIVE-EST: 40-64 BODY MASS INDEX DOCD SYST BP LT 130 MM HG DIAST BP < 80 MM HG FALL RISK ASSESSMENT DOC'D PRES/ABSN URINE INCON ASSESS CBC, INC PLATELETS AND DIFFERENTIAL COMPREHEN METABOLIC PANEL CMP 0 LIPID PANEL TEST, HCG, QL (U) ESSE 2019 URINALYSIS, DIPSTICK (UA) - Office Lab J ROUTINE VENIPUNCTURE PREVENTATIVE-EST: 18-39 BODY MASS INDEX DOCD SYST BP LT 130 MM HG DIAST BP < 80 MM HG Advance Directives Directive Yes / No Effective Date File Name No Information Encounters Encounter Description Practice Location Reason(s) For Visit Diagnoses Date Provider Providers Copied on Encounter [facility], [address], [place], [place], [address] , tel: [phone] [facility] No Information 5 Milad Garcia. [address] [place] [address], [facility] [address] , [place], [place], [address] , . tel: [phone] [facility], [address], [place], [place], [address] , tel: [phone] [facility] No Information 5 Milad Garcia. [address] [place] [address], [facility] [address] , [place], [place], [address] , . tel: [phone] [facility], [address], [place], [place], [address] , tel: [phone] [facility] No Information 5 Milad Garcia. [address] [place] [address], [facility] [address] , [place], [place], [address] , . tel: [phone] [facility], [address], [place], [place], [address] , tel: [phone] [facility] No Information 5 Isabel Thompson. [address] [place] [address], [id number] , [place]. tel: [phone] [facility], [address], [place], [place], [address] , tel: [phone] [facility] No Information 5 Isabel Thompson. [address] [place] [address], [id number] , [place]. tel: [phone] Referring Provider: Jose Stinson [address] [place] [address] [address], [place], [address] . tel:[phone] [facility] [employer], [address], [place], [place], [address] , tel: [phone] [facility] No Information 4 Desiree Amanda. [address] [place] [address], [address], [place], [place], [address] , [place]. tel: [phone] [facility], [address], [place], [place], [address] , [place] tel: [phone] [facility] No Information 4 Desiree Amanda. [address] [place] [address], [address], [place], [place], [address] , [place]. tel: [phone] OFFICE [id number], [address], [place], [place], [address] , tel: [phone] [facility] stomach issues (chief complaint)f atigue (chief complaint)C hronic Conditions (chief complaint) Class 3 ObesityBody mass index [BMI] 40.0-44.9, adultPrimary hypertensionPalpi tationsMigraine with aura and without status migrainosus, not intractableOSA (obstructive sleep apnea)GERD without esophagitisVitami n B 12 deficiencyFamily history of diabetes mellitusOther fatigue 4 Desiree Amanda. [address] [place] [address], [address], [place], [place], [address] , [place]. tel: [phone] Referring Provider: Jose Stinson [address] [place] [address] [address], [place], [address] . tel:[phone] [facility], [address], [place], [place], [address] , [place] tel: [phone] [facility] No Information 3 Isabel Thompson. [address] [place] [address], [facility] [address], [place], [place], [address] , . tel: [phone] Referring Provider: Jose Stinson [address] [place] [address] [address], [place], [address] . tel:[phone] PREVENTATIVE -EST: [facility], [address], [place], [place], [address] , tel: [phone] [facility] preventive exam (chief complaint)r ectal bleeding (chief complaint)C hronic Conditions (chief complaint) Body mass index [BMI] 39.0-39.9, adultEncounter for general adult medical examination without abnormal findingsRectal bleedingPrimary hypertensionMigra ine without aura and without status migrainosus, not intractableElevat ed prolactin levelOther fatigue Sep- [address] [place] [address], [address] , [place], [place], [address] , . tel:[phone] Referring Provider: Jose Stinson, [address] [place] [address] [address] , [place], [address] . tel:[phone] PREVENTATIVE -EST: [facility], [address], [place], [place], [address] , tel: [phone] [facility] preventive exam (chief complaint)f eeling fatigued (chief complaint)l eft earache (chief complaint)C hronic Conditions (chief complaint) Morbid (severe) obesity due to excess caloriesBody mass index [BMI] 40.0-44.9, adultEncounter for general adult medical examination without abnormal findingsPrimary hypertensionKidne y stonesMigraine without status migrainosus, not intractable, unspecified migraine typeEaracheFatigu e, unspecified type Jul- 2 Desiree Amanda. [address] [place] [address], [address] , [place], [place], [address] , . tel:[phone] Referring Provider: Jose Stinson [address] [place] [address] [address] , [place], [address] . tel:[phone] PREVENTATIVE -EST: 18-39 [facility], [address], [place], [place], [address] , tel: [phone] [facility] preventive exam (chief complaint)C hronic Conditions (chief complaint) Encounter for preventative adult health care examinationEssent ial hypertensionMigra ine without aura and without status migrainosus, not intractableAbnorm al mensesUpper respiratory tract infection, unspecified type 0 Desiree Amanda. [address] [facility], [address] , [place], [place], [address] , . tel: [phone] Referring Provider: Jose Stinson [address] [place] [address] [address] , [place], [address] . tel:[phone] [facility], [address], [place], [place], [address] , tel: [phone] [facility] Morbid (severe) obesity due to excess caloriesEncounter for preventive health examinationMigrai ne with aura and without status migrainosus, not intractableEssent ial hypertensionLipid screeningFamily history of diabetes mellitus (DM) 7 Desiree [address]. [address] [place] [address], [address] , [place], [place], [address] , . tel: [phone] Referring Provider: Jose Stinson [address] [place] [address] [address] , [place], [address] . tel:[phone] Family History Family Member Type Diagnosis Age At Onset Father Problem (finding) stroke Mother Problem (finding) Thyroid disorder Father Problem (finding) gallbladder disease Brother Problem (finding) migraine Father Problem (finding) hypertension Brother Problem (finding) hypertension Brother Problem (finding) asthma Brother Problem (finding) Allergies Father Problem (finding) Irritable bowel disease Payers Payer name Insurance type Covered republican ID Authoriza tion(s) No Information Social History Type Description Quantity Date Captured Comments Alcohol Use Details Unknown Caffeine Use Details Unknown Tobacco Use Status No Information Smoking Status No Information Sex Female Chief Complaint And Reason For Visit No Information Reason For Referral Reason For Referral No Information Plan Of Treatment Date Type Action Status Goal Dietary management education , guidance, and counseling completed Goal Dietary management education , guidance, and counseling completed Goal Dietary management education , guidance, and counseling completed History Of Present Illness Encounter Date Complaint History Of Prese nt Illness Chronic Conditions *See Chronic Conditions HPI fatigue She notes she is seeing the hedge fund accountant regarding her PVC with jax , saw Dr Tam and he initially referred her to Dr Manzano but her father wanted her to see his hedge fund accountant - Dr Glover at [facility], on May 21, 2024. She states Dr Tam suggested ablation. She last saw Dr Tam in February 2024. She states she had stress test and echo which were 'okay'. She was supposed to have Mg and K checked but 'didn't yet'. stomach issues She notes she forrester s a lot of acid reflux, she takes omeprazole and helps during the day. Does note she has a hiatal hernia. She had colonoscopy in Aug 2023. She states she has food issues- pasta, mild, cottage cheese , sour cream. she wants to have check for celiac disease, possible upper endoscopy after her heart issues are dealt with. rectal bleeding The symptoms beg an 6 days ago. She notes she has had rectal bleeding for past 6 days. She states there is blood in the toilet which is bright red, then dark with clots. She recently had uterine ablation and bilateral salpingectomy. She denies use of ibuprofen, advil. preventive exam : 1. Ayanna ty: Pre-Term: 1. Livin. The patient states using abstinence for control. Patient's menses is irregular. Positive for dysmenorrhea and menorrhagia. Details: She had ablation, bilat. salpingectomy 06/2023, had menses afterwards. Negative for: breast discharge, breast lump(s) and breast pain. Positive for: breast self exam. Menopausal symptoms negative for: insomnia. Associated symptoms include abnormal vaginal bleeding. Pertinent negatives include anxiety, depression, difficulty falling sleep, sexual dysfunction, sleep disturbances, urinary incontinence, urinary urgency and vaginal discharge. Diet healthy. Patient reports getting calcium from dietary sources. Patient does not take Vitamin D. Patient does not take multivitamins. Patient does not take Folic acid.The patient states Patient's exercise level is moderate and frequency is daily. The patient does not use tobacco. The patient has not been exposed to passive smoke. The patient has not been exposed to passive vaping. The patient does not drink alcohol. Additional information: She notes she is here for a preventive exam and also has had rectal bleeding for 6 days. She is single, she works at [employer], does not smoke or drink alcohol. She did not have COVID vaccines, does not take flu vaccines. She notes she continues with vaginal bleeding- she is to see mule developer on 08/02/23.. Chronic Conditions *See Chronic Conditions HPI preventive exam : 1. Ayanna ty: Pre-Term: 1. Livin. The patient states she uses abstinence for control. Last LMP was 07/12/2022. Her menses is regular with heavy flow. Negative for dysmenorrhea and menorrhagia. Negative for: breast discharge, breast lump(s) and breast pain. Positive for: breast self exam. Associated symptoms include decreased libido. Pertinent negatives include abnormal bleeding (hematology), abnormal vaginal bleeding, depression, difficulty falling sleep, nocturia, sleep disturbances, urinary incontinence, urinary urgency, vaginal discharge and vaginal itching. Diet healthy. She reports getting 500 mg/day calcium from dietary sources. She does not take Vitamin D. She does not take multivitamins. She does not take Folic acid.The patient states her exercise level is moderate and frequency is daily. The patient does not use tobacco. She has not been exposed to passive smoke. She has not been exposed to passive vaping. She does not drink alcohol. Additional information: She is here today for a preventive exam. . She was last here in April 2020. She is single, works at [email or web address]. She does no smoke or drink alcohol. She does not get flu vaccines, did not have covid vaccines. She states she is 'due ' for a well woman exam- has history of colposcopy about 10 years ago, not presently sexually active. She has not had a screening mammogram, she agrees to schedule- will make sure her insurance covers at her age of 42.. feeling fatigued left earache Chronic Conditions *See Chronic Conditions HPI preventive exam The patient stat es she uses none for control. Last LMP was 03/05/2020. Her menses is irregular. Negative for dysmenorrhea and menorrhagia. Negative for: breast discharge, breast lump(s) and breast pain. Positive for: breast self exam. Menopausal symptoms negative for: hot flashes. Pertinent negatives include abnormal bleeding (hematology), abnormal vaginal bleeding, anxiety, decreased libido, depression, difficulty falling sleep, nocturia, sexual dysfunction, sleep disturbances, urinary incontinence, urinary urgency, vaginal discharge and vaginal itching. Diet healthy. She reports getting calcium from dietary sources. She does not take Vitamin D. She does not take multivitamins. She does not take Folic acid.The patient states her exercise level is moderate and frequency is daily. The patient does not use tobacco. She has been exposed to passive smoke. She has not been exposed to passive vaping. She does not drink alcohol. Additional information: She is here for preventive exam and discuss headaches. 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 She is sexually active, does not use any control. She notes last menses were in March,'at the beginning'. She states she guesses she 'could be , She saw her mule developer < a year ago for well woman exam.. Chronic Conditions *See Chronic Conditions HPI Functional Status Date Functional Assessmen t No Information Instructions Date Instruction Additional Infor annelise She notes she is see ing the hedge fund accountant regarding her PVC with jax , saw Dr Tam and he initially referred her to Dr Manzano but her father wanted her to see his hedge fund accountant - Dr Glover at [facility], on May 21, 2024. She states Dr Tam suggested ablation. She last saw Dr Tam in February 2024. She states she had stress test and echo which were 'okay'. She was supposed to have Mg and K checked but 'didn't yet'. Related to Other fatigue check hgba1c today. Related to F amily history of diabetes mellitus Check of vitamin B 1 2 today. Will use supplements if indicated. Related to Vitamin B 12 deficiency She notes she has a lot of acid reflux, she takes omeprazole and helps during the day. Does note she has a hiatal hernia. She had colonoscopy in Aug 2023. She states she has food issues- pasta, mild, cottage cheese , sour cream. she wants to have check for celiac disease, possible upper endoscopy after her heart issues are dealt with. rx for pantoprazole sent to her pharmacy-she will advise of progress. Related to GERD without esophagitis She will advise of changes. Rela zion to MYRANDA (obstructive sleep apnea) She will continue pr esent plan of care, advise if symptoms change. Related to Migraine with aura and without status migrainosus, not intractable She will advise of p fermin of care per Dr Glover. Related to Palpitations Review of labs today Related to Primary hypertension Encouraged to watch diet for fats, increase exercise to work on weight loss. Related to Class 3 Obesity Disease process Prescribed activity/ exercise education Related to Body mass index (BMI) 40.0-44.9, adult Dietary management e ducation, guidance, and counseling Related to Body mass index (BMI) 40.0-44.9, adult She notes she is her e for a preventive exam and also has had rectal bleeding for 6 days. She is single, she works at [employer], does not smoke or drink alcohol. She did not have COVID vaccines, does not take flu vaccines. She notes she continues with vaginal bleeding- she is to see mule developer on 08/02/23. Related to Encounter for general adult medical examination without abnormal findings She notes she has forrester d rectal bleeding for past 6 days. She states there is blood in the toilet which is bright red, then dark with clots. She recently had uterine ablation and bilateral salpingectomy. She denies use of ibuprofen, advil. Related to Rectal bleeding She requests prolact in be drawn here for mule developer use. will draw here- she states she is fasting as they requested. Related to Elevated prolactin level sending labs today Related to Ot her fatigue continue present odalis n of care. Advise of changes. Related to Migraine without aura and without status migrainosus, not intractable Continue present odalis n of care. Advise of changes. Related to Primary hypertension Dietary management e ducation, guidance, and counseling Related to Body mass index (BMI) 39.0-39.9, adult Disease process Prescribed activity/ exercise education Related to Body mass index (BMI) 39.0-39.9, adult She is here today fo r a preventive exam. . She was last here in April 2020. She is single, works at [email or web address]. She does no smoke or drink alcohol. She does not get flu vaccines, did not have covid vaccines. She states she is 'due ' for a well woman exam- has history of colposcopy about 10 years ago, not presently sexually active. She has not had a screening mammogram, she agrees to schedule- will make sure her insurance covers at her age of 42. Related to Encounter for general adult medical examination without abnormal findings reviewing labs Related to Fatig ue, unspecified type Rx for azithromycin sent to her pharmacy. She will advise of progress, consider ENT follow up if not improving. Related to Earache She will try Nurtec for prevention and acute- she will advise of progress- she is given 6 sample pills. Related to Migraine without status migrainosus, not intractable, unspecified migraine type Encouraged to follow with Dr Ramirez, to continue avoiding sodas and other food trggers. Related to Kidney stones Will continue present plan of ca re Related to Primary hypertension Continue to work on weight loss, diet and exercise as able. Related to Morbid (severe) obesity due to excess calories Prescribed activity/ exercise education Related to Body mass index (BMI) 40.0-44.9, adult Dietary management e ducation, guidance, and counseling Related to Body mass index (BMI) 40.0-44.9, adult Disease process she is noted to have sinus pressure, ongoing for several days. States she has temp checked every day at her job- is always okay. Related to Upper respiratory tract infection, unspecified type she notes she 'could ' be , last menses beginning of March, does not use any control and is sexually active. Related to Abnormal menses Given samples of med ication Ubrelvy. to use one tablet at onset, may repeat after 2 hours if not resolved. She will call with progress or any problems. Related to Migraine without aura and without status migrainosus, not intractable Checking labs, emily campos present plan of care. Related to Essential hypertension Disease process Assessments Type Assessment Date No Information Patient Care Teams Name Effective Dates (start - stop) Status Members No Information
--- OUTSIDE RECORDS SUMMARY | 2025-03-31 09:31 | XMS_ITS | Continuity of Care Document ---
Author Organization [facility] Address [address] [place] [address] [place] [address] Phone Care Team Providers Care Rn Psychiatric Name Role Phone [facility] Unavailable Unavail able Jennifer Abarca Unavailable Unavailable Procedures Procedure Date Progressive Lens Per Lens Anti-reflective Coating Lens Bifocal Add Over 3.25d Bif Polycarb Advance Directives Directive Yes / No Effective Date File Name No Information Encounters Encounter Description Practice Location Reason(s) For Visit Diagnoses Date Provider Providers Copied on Encounter [facility] with [facility], [address], [place], [place], [address], [place] tel:[phone] [facility] No Information 8 [facility] [facility]. [address] [facility], [address], [place], [place], [address] , [place]. tel:[phone] Consulting Provider: Jennifer Abarca, [address] [facility], [place], [address]. tel:[phone] Family History Family Member Type Diagnosis Age At Onset No Information Payers Payer name Insurance type Covered green party ID Authoriza tion(s) No Information Social History Type Description Quantity Date Captured Comments Sex Female Smoking Status No Information Chief Complaint And Reason For Visit No Information Reason For Referral Reason For Referral No Information History Of Present Illness Encounter Date Complaint History Of Prese nt Illness No Information Functional Status Date Functional Assessmen t No Information Instructions Date Instruction Additional Infor mation No Information Assessments Type Assessment Date No Information Patient Care Teams Name Effective Dates (start - stop) Status Members No Information
== END 2025-03-31 10:07 | disposition home or self-care (01) ==
PROVIDERS: Emergency Provider Nurse Practitioner Family; PCP Internal Medicine
DX: M77.32 Calcaneal spur, left foot (principal); I10 Essential (primary) hypertension
CPT/HCPCS: 73630; 99213; G0463